=== PATIENT | male | born 1985 | race Caucasian/White ===

== ENCOUNTER 2021-03-19 05:33 | Observation (INO) | payer BC, SELFPAY ==
[2021-03-19] VITALS (13 sets, daily range): BP systolic 148–188; BP diastolic 89–109; PULSE 87–119; RESP 14–19; TEMP 36.4–36.8; O2SAT 97–100; BMI 38.4
--- NOTE | ~2021-03-19 | XR_ITS ---
EXAMINATION: XR chest 1V portable DATE: 03/19/2021 05:49 INDICATION: Chest pain TECHNIQUE: frontal view of the chest was obtained. COMPARISON: None FINDINGS: The lungs are clear with no focal airspace opacities, pulmonary edema, pleural effusion or pneumothor ax. The cardiomediastinal silhouette is normal. Visualized bones and soft tissues are unremarkable. IMPRESSION: 1. No acute cardiopulmonary disease. Reviewed, dictated and finalized at location A. HEALTH SCHEDULER
--- NOTE | ~2021-03-19 | CT_ITS ---
EXAMINATION: CTA chest PE protocol DATE: 03/19/2021 14:48 INDICATION: Chest pain. Recent Covid 19 diagnosis TECHNIQUE: Computed tomography angiography (CTA) of the chest was performed with 100 mL Omnipaque-350 intravenous contrast timed to evaluate the pulmonary arteries. Coronal maximum intensity projection 3D-reconstructions were created by the technologist. Automated exposure control and iterative reconst ruction technique were employed. Exam dose: 886.39 mGy-cm total exam DLP. COMPARISON: None. FINDINGS: There is diagnostic contrast enhancement of the pulmonary arteries and no evidence of pulmo nary embolism. No thoracic aortic aneurysm or dissection. Normal heart size. No pericardial or pleural effusion. No pulmonary infiltrate or consolidation or pulmonary mass density. Small sliding hiatal hernia. There is hepatic steatosis with minimal sparing around the gallbladder. There is a nonspecific approximately 2.5 cm rounded area of hypoenhancement in the anterolateral mid right kidney; different diagnosis includes focal pyelonephritis or infarct, hypernephroma. No suspicious osteolytic or osteoblastic lesions are noted. IMPRESSION: No evidence of pulmonary embolism Approximately 2.5 cm hypoenhancing lesion of the right kidney; diffusion diagnosis includes pyeloneph ritis, renal infarct, hypernephroma Reviewed, dictated and finalized at [facility]. Reviewed, dictated and finalized at location A. GE LICENSED PRACTICAL NURSE IMPRESSION: No evidence of pulmonary embolism Approximately 2.5 cm hypoenhancing lesion of the right kidney; diffusion diagno sis includes pyelonephritis, renal infarct, hypernephroma
--- NOTE | 2021-03-19 05:37 | ECG_ITS ---
Measurements Intervals [place] Rate: 109 P: 42 WA: 116 QRS: 13 QRSD: 103 T: 48 QT: 336 QTc: 454 Interpretive Statements SINUS TACHYCARDIA WITH SHORT WA INTERVAL INCOMPLETE RIGHT BUNDLE BRANCH BLOCK BORDERLINE ST ABNORMALITY- ANTEROLATERAL LEADS BORDERLINE ECG Electronically Signed On 03-19-2021 7:08:34 PUMPMAN by Abdi Bowen D.O.
--- NOTE | 2021-03-19 05:59 | ED.CHESTPAIN ---
HPI - Chest Pain General Chief Complaint: Chest Pain Stated Complaint: midsternal cp x 1 week Time Seen by Provider: 03/19/21 05:37 Source: RN notes reviewed History of Present Illness HPI narrative: Patient presents emergency department from home for chest pain. Patient states has been having intermittent midsternal chest pain for the past 1 week. The pain is located midsternal chest described as a pressure in nature. States that the pain causes tingling in his left hand. Pain does get worse with activity states the pain will last from 10 to 20 minutes and resolve he denies any shortness of breath with the pain he denies any fevers or chills abdominal pain nausea vomiting or any other symptoms. States the pain is resolved at this time Related Data Home Medications Medication Instructions Recorded Confirmed No Home Medications 03/19/21 03/19/21 Allergies Allergy/AdvReac Type Severity Reaction Status Date / Time No Known Allergies Allergy Verified 03/19/21 05:48 Review of Systems Review of Systems: Gen.: Denies fevers or chills ENT: Denies congestion Respiratory: Denies shortness of breath or cough CV: See HPI GI: Denies abdominal pain nausea, emesis or diarrhea Musculoskeletal: Denies back pain or muscle pain Neuro: Denies numbness, tingling, weakness or focal weakness Skin: Denies rash Except as documented, all other systems reviewed and negative [facility] Past Medical History Medical History (Updated 03/19/21 @ 06:57 by Tom Talavera DO) Hypertension Social History Social History (Updated 03/19/21 @ 06:08 by Tom Talavera DO) Smoking status: Current every day smoker Exam Narrative: APPEARANCE: No acute distress, nontoxic, resting in bed EYES: EOMI HEENT: Normocephalic, atraumatic, OMM RESPIRATORY: No respiratory distress Clear to auscultation bilaterally with no rhonchi wheezing or rales. CARDIOVASCULAR: Regular rate and rhythm without murmurs rubs or gallops. ABDOMINAL: Soft, nontender, nondistended, no rebound or guarding MUSCULOSKELETAl: Moves all extremities. No clubbing, cyanosis or edema. NEURO: Awake and alert. Following commands, speech normal, no focal deficits SKIN:: Warm, dry. No rashes lesions or abrasions PSYCHIATRIC: Normal affect/mood, Course Course Emergency Course: Discussed with Dr. Tran presentation work-up agrees with consult recommends admission the hospital service Discussed with Dr. Rivera presentation work-up agrees with admission at this time Discussed with patient and family results of workup and diagnosis. Discussed need for admission. Patient and family understand and agree to current treatment plan Vital Signs Vital signs: Vital Signs Temperature 97.6 F 03/19/21 05:37 Pulse Rate 116 H 03/19/21 05:37 Respiratory Rate 17 03/19/21 05:37 Blood Pressure 188/109 H 03/19/21 05:37 Pulse Oximetry 99 03/19/21 05:37 Temperature 97.6 F 03/19/21 05:37 Pulse Rate 94 03/19/21 06:33 Respiratory Rate 16 03/19/21 06:33 Blood Pressure 148/93 H 03/19/21 06:33 Pulse Oximetry 97 03/19/21 06:33 MDM - Chest Pain Lab Data Result diagrams: 03/19/21 05:56 03/19/21 05:56 Labs: Lab Results 03/19/21 03/19/21 03/19/21 Range/Units 05:56 05:56 05:56 WBC 14.3 H (4.5-10.0) K/mm3 RBC 5.23 (4.6-6.20) M/mm3 Hgb 16.8 (14.0-18.0) g/dL Hct 48.3 (42.0-52.0) % MCV 92.4 (80-100) fl MCH 32.1 (26-34) pg MCHC 34.8 (32-36) g/dl RDW 13.7 (11.5-14.5) % Plt Count 356 (150-375) k/mm3 MPV 8.7 (7.4-10.4) fl Immature Gran % (Auto) 0.5 (0-0.5) % Neut % (Auto) 52.5 (45.5-73.1) % Lymph % (Auto) 38.6 (18.3-44.2) % [place] % (Auto) 7.2 (2.6-8.5) % Eos % (Auto) 0.8 (0-4.4) % Baso % (Auto) 0.4 (0.2-1.2) % Lymph # (Auto) 5.50 H (0.9-3.2) K/mm3 [place] # (Auto) 1.0 H (0.1-0.6) K/mm3 Eos # (Auto) 0.1 (0-0.3) K/mm3 Baso # (Auto) 0.1 (0.0-
[2021-03-19 06:04] LABS: Basophils Absolute Auto 0.1 K/mm3 (0.0-0.1); Basophils Percent Auto 0.4 % (0.2-1.2); Eosinophils Absolute Auto 0.1 K/mm3 (0-0.3); Eosinophils Percent Auto 0.8 % (0-4.4); Hematocrit 48.3 % (42.0-52.0); Hemoglobin 16.8 g/dL (14.0-18.0); Immature Granulocyte Absolute 0.07 K/mm3 (0.00-0.031); Immature Granulocyte Percent A 0.5 % (0-0.5); Lymphocytes Percent Auto 38.6 % (18.3-44.2); Mean Corpuscular HGB Conc 34.8 g/dl (32-36); Mean Corpuscular Hemoglobin 32.1 pg (26-34); Mean Corpuscular Volume 92.4 fl (80-100); Mean Platelet Volume 8.7 fl (7.4-10.4); Monocytes Percent Auto 7.2 % (2.6-8.5); Neutrophils Absolute Auto 7.5 K/mm3 (1.3-6.7); Neutrophils Percent Auto 52.5 % (45.5-73.1); Platelet Count Result 356 k/mm3 (150-375); Red Blood Count 5.23 M/mm3 (4.6-6.20); Red Cell Distribution Width 13.7 % (11.5-14.5); White Blood Count 14.3 K/mm3 (4.5-10.0)
[2021-03-19] MEDS: SODIUM CHLORIDE 0.9% IV 1,000 ML 999 ML IV CONT (06:11)
[2021-03-19 06:17] LABS: Alanine Aminotransferase 75 U/L (4-50); Albumin Level 4.6 g/dL (3.5-5.1); Alkaline Phosphatase 93 U/L (38-126); Anion Gap 15 mmol/L (8-16); Aspartate Amino Transferase 48 U/L (17-59); Bilirubin,Total 0.4 mg/dL (0.2-1.3); Blood Urea Nitrogen 10 mg/dL (9-20); Calcium 10.1 mg/dL (8.4-10.2); Carbon Dioxide 27 mmol/L (22-30); Chloride 101 mmol/L (98-107); Estimated Glomerular Filt Rate > 60; Glucose 148 mg/dL (65-110); Lipase 259 U/L (23-300); Potassium 3.8 mmol/L (3.4-5.0); Sodium 143 mmol/L (137-145)
[2021-03-19 06:19] LABS: INR 0.9; Prothrombin Time 12.4 Seconds (11.1-14.7)
[2021-03-19 06:20] LABS: Partial Thromboplastin Time 29.6 SECONDS (22.3-36.8)
[2021-03-19 06:27] LABS: Troponin I 0.017 ng/mL (0.000-0.034)
[2021-03-19] MEDS: ASPIRIN 81 MG CHEWABLE TABLET 324 MG PO (06:40)
--- NOTE | 2021-03-19 06:40 | PC.NURSE ---
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
[2021-03-19 06:54] LABS: D Dimer 0.27 ug/mL (<0.48)
[2021-03-19 08:34] LABS: Troponin I 0.034 ng/mL (0.000-0.034)
[2021-03-19 11:52] LABS: Troponin I 0.124 ng/mL (0.000-0.034)
--- NOTE | 2021-03-19 13:35 | PM.IMHP ---
H&P: HPI History of Present Illness Date/Time: 03/19/21 13:35Thitrevor is a 35-year-old male patient who has a history of hypertension and has been noncompliant with his hypertensive medication. The patient stated that he has had intermittent chest pain on and off for the past week. The patient stated that his chest pain typically occurs with activity and usually last 10-15 minutes. 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 The chest pain has been midsternal and he states that he does get some left elbow pain and numbness and tingling to his left pinky finger when this occurs. The patient stated that today it has been the worst. He has had some pressure to his chest. No fever chills. No nausea Or vomiting. The patient stated that his pain did radiate between his shoulder blades today. the patient stated that he has been taking Excedrin at home. patient stated his pain was relieved in the emergency room however when I assessed him he stated that he still having some mild discomfort midsternally. The patient stated that he was at rest today when his discomfort started. The 1st 2 troponins were negative and the 3rd troponin was slightly reactive at 0.124. The patient stated that he has blood pressure medicine prescribed to him but he just has not been taking it. EKG was read as sinus tachycardia with short IA interval. Incomplete right bundle branch block. Borderline ST abnormality. Cardiology has been consulted. The patient was started on IV fluids and an aspirin. His white count is 14.3 which may be reactive. Glucose was noted to be 148. The patient stated that he just got off of isolation for COVID-19. The patient stated that he had COVID 2 weeks ago. Chest x-ray was read as no acute cardiopulmonary disease. blood pressures have been 180/109 to 165/101. I did order some hydralazine for the patient. Patient is being admitted to observation status on the date of service of 03/19/2021 Chief Complaint: Chest pain Review of Systems Review of Systems: All systems reviewed & are unremarkable except as noted in HPI and below Constitutional: Constitutional: Reports as per HPI and Reports no additional constitutional complaints Eyes: Eyes: Reports as per HPI and Reports no additional eye complaints ENT: Reports system reviewed and no additional complaints, except as documented and Reports Normal hearing present Cardiovascular: Cardiovascular: Reports no additional cardiovascular complaints Respiratory: Respiratory: Reports no additional respiratory complaints and Reports no additional respiratory complaints Gastrointestinal: Gastrointestinal: Reports as per HPI and Reports no additional gastrointestinal complaints Musculoskeletal: Musculoskeletal: Reports no additional musculoskeletal complaints Integumentary/Breasts: Skin/Breast: Reports system reviewed and no additional complaints, except as docu and Reports as per HPI Neurologic: Reports system reviewed and no additional complaints, except as documented, Reports as per HPI and Reports Normal hearing present Psychiatric: Psychiatric: Reports no additional psychiatric complaints and Reports as per HPI Endocrine: Endocrine: Reports no additional endocrine complaints Hematologic/Lymphatic: Hematologic/Lymphatic: Reports no additional hematologic/lymphatic complaints Allergic/Immunologic: Allergic/Immunologic: Reports no additional allergic/immunologic complaints PMFSH Past Medical History Medical History (Updated 03/19/21 @ 13:49 by Lindsay Johnson NP) COVID-19 2 weeks ago is off isolation Hypertension Non compliant with treatment Surgical History Surgical History (Updated 03/19/21 @ 13:43 by Lindsay Johnson NP) H/O oral surgery Family History Family History (Updated 03/19/21 @ 13:44 by Lindsay Johnson NP) Father Healthy adult Social History Social History (Updated 03/19/21 @ 13:45 by Lindsay Peters
[2021-03-19] MEDS: hydrALAZINE HCL 20 MG/ML VIAL 10 MG IV PUSH (15:12)
[2021-03-19 15:54] LABS: Troponin I 0.366 ng/mL (0.000-0.034)
--- NOTE | 2021-03-19 16:41 | PC.NURSE ---
Notified Lindsay Johnson of patient's high blood pressure. Verbal order to administer pt 2100 dose of metoprolol.
[2021-03-19] MEDS: METOPROLOL TARTRATE 12.5 MG TABLET PO (16:49)
--- NOTE | 2021-03-19 18:34 | ADMGEN ---
This patient, Seth Caldwell, was admitted to Intensive Care Unit-9. Patient/family oriented to hospital policies and general routines including ID bracelet, bed and alarms, visiting hours, pain management, procedures, bathroom and other care routines, personal items, smoking policy, room service/diet, and visiting hours. Information on how to activate the Rapid Response Team has been discussed. Patient/Family are encouraged to report perceived risks to care and to ask questions if they do not understand what they are told or what they should do.
[2021-03-20] VITALS (14 sets, daily range): BP systolic 141–167; BP diastolic 89–105; PULSE 87–122; RESP 14–22; TEMP 36.7–37.4; O2SAT 96–99
--- NOTE | 2021-03-20 | ECHO_ITS ---
Patient Info Name: Seth Caldwell Age: 35 years : 1985 Gender: Male Ht: 68 in Wt: 250 lbs BSA: 2.38 m2 HR: 87 bpm BP: 152 / 98 mmHg Heart Rhythm: Sinus Rhythm Exam Date: 03/20/2021 10:58 AM Exam Location: [facility] Patient Status: Inpatient Admit Date: 03/19/2021 Staff Ordering Physician: Lindsay Johnson NP Heel Seat Flap Stapler: Case Hernandez RDCS, RT Attending Provider: Rula Rivera MD Referring Physician: Alex RICHEY; Exam Type: CA echo dop color flow w con Study Info Indications R07.9 - Chest pain, unspecified Complete two-dimensional, color flow and Doppler transthoracic echocardiogram is performed with contrast to opacify the left ventricle and to improve the deliniation of the left ventricle endocardial borders. Strain analysis performed. Summary 1. Mild left ventricular hypertrophy with normal systolic function. 2. No ischemic wall motion abnormalities were identified. 3. No valvular pathology was identified. 4. Incidentally noted left ventricular false cord. Left Ventricle Left ventricular chamber dimension is normal. Left ventricular systolic function is normal, estimated at 50-55%. There is mild concentric increased left ventricular wall thickness. The left ventricular diastolic function is normal. Right Ventricle Right ventricular chamber dimension is normal. Left Atria Left atrial chamber dimension is normal. Right Atria Right atrial chamber dimension is normal. Aortic Valve The aortic valve is normal. Pulmonic Valve The pulmonic valve is not well visualized. Mitral Valve The mitral valve has normal leaflets. Tricuspid Valve The tricuspid valve leaflets are normal. Pericardium/Pleural The pericardium appears normal. Aorta The aortic root size at the sinus of Valsalva is normal. Left Ventricular Outflow Tract Name Value Normal LVOT 2D LVOT Diameter 2.05 cm LVOT Doppler LVOT Peak Gradient 3 mmHg LVOT Mean Gradient 2 mmHg LVOT VTI 16.46 cm LVOT VTI/AV VTI Ratio 0.68 LVOT Stroke Volume 54.24 ml LVOT CO 4.99 l/min LVOT CI 2.09 L/min/m2 Mitral Valve Name Value Normal MV Doppler MV Decel [place] 408.22 cm/s2 MV PHT 0 s MV Area (PHT) 4.14 cm2 4.00-5.00 MV Diastolic Function MV E Peak Velocity 74.80 cm/s MV A Peak Velocity 56.66 cm/s MV E/A 1.32 MV Decel Time 0 s MV Annular TDI
[2021-03-20 04:54] LABS: Basophils Absolute Auto 0.1 K/mm3 (0.0-0.1); Basophils Percent Auto 0.4 % (0.2-1.2); Eosinophils Absolute Auto 0.2 K/mm3 (0-0.3); Eosinophils Percent Auto 1.2 % (0-4.4); Hematocrit 47.2 % (42.0-52.0); Hemoglobin 16.4 g/dL (14.0-18.0); Immature Granulocyte Absolute 0.06 K/mm3 (0.00-0.031); Immature Granulocyte Percent A 0.5 % (0-0.5); Lymphocytes Absolute Auto 3.64 K/mm3 (0.9-3.2); Lymphocytes Percent Auto 29.6 % (18.3-44.2); Mean Corpuscular HGB Conc 34.7 g/dl (32-36); Mean Platelet Volume 8.8 fl (7.4-10.4); Monocytes Absolute Auto 1.1 K/mm3 (0.1-0.6); Monocytes Percent Auto 9.3 % (2.6-8.5); Neutrophils Absolute Auto 7.3 K/mm3 (1.3-6.7); Platelet Count Result 329 k/mm3 (150-375); Red Blood Count 5.13 M/mm3 (4.6-6.20); Red Cell Distribution Width 13.8 % (11.5-14.5); White Blood Count 12.3 K/mm3 (4.5-10.0)
[2021-03-20 05:04] LABS: Lactic Acid Reflex 0.8 mmol/L (0.7-2.1)
[2021-03-20 05:05] LABS: Anion Gap 8 mmol/L (8-16); Blood Urea Nitrogen 12 mg/dL (9-20); Calcium 9.2 mg/dL (8.4-10.2); Carbon Dioxide 26 mmol/L (22-30); Chloride 105 mmol/L (98-107); Cholesterol 184 mg/dL (0-200); Estimated CRCL calculation 138 ml/min; Estimated Glomerular Filt Rate > 60; Glucose 111 mg/dL (65-110); HDL Direct 34 mg/dL; Lipase 256 U/L (23-300); Magnesium 2.2 mg/dL (1.6-2.3); Potassium 3.7 mmol/L (3.4-5.0); Sodium 139 mmol/L (137-145); Triglycerides 122 mg/dL (<150)
[2021-03-20 05:16] LABS: LDL Cholesterol Direct 132 mg/dL
[2021-03-20 05:20] LABS: Troponin I 0.966 ng/mL (0.000-0.034)
--- NOTE | 2021-03-20 07:07 | PC.NURSE ---
This patient, Seth Caldwell, was received from ICU on 03/20/21 at 0630. Patient/family oriented to unit policies and routines. All questions ansered at this time.
[2021-03-20] MEDS: METOPROLOL TARTRATE 12.5 MG TABLET PO (09:14)
[2021-03-20] MEDS: ENOXAPARIN 40 MG/0.4 ML SYRINGE SUB-Q (09:14)
[2021-03-20] MEDS: ASPIRIN 81 MG ENTERIC TABLET PO (09:15)
[2021-03-20] MEDS: PERFLUTREN LIPID MICROSPHERES 1.5 ML VIAL DILUTED TO 10 ML TOTAL VOLUME IV PUSH (11:40)
[2021-03-20] MEDS: lisinopriL 20 MG TABLET PO (11:45)
[2021-03-20] MEDS: amLODIPine BESYLATE 5 MG TABLET 10 MG BY MOUTH (11:45)
[2021-03-20 12:28] LABS: Lactate Dehydrogenase 471 U/L (313-618)
--- NOTE | 2021-03-20 13:09 | PM.CNCAR ---
Assessment and Plan Additional Plan 35-year-old man with significant hypertension requiring a multi-drug regimen for treatment. In this setting with no medication his blood pressure was extremely high and he was having some symptoms of chest pain. Normally he does not experience any symptoms that are suspicious for coronary artery disease. His blood pressure while still elevated is improved enough for I believe he could be discharged. I believe I would recommend a Lexiscan nuclear stress test to rule out significant ischemic heart disease. With his pressure being elevated I would rather not have him run on the treadmill. That of course could be done as an inpatient tomorrow morning but certainly I believe he is stable enough at at relatively young age with this can be done safely in my office as an outpatient. I will assume unless I hear otherwise that he is being discharged for these reasons and I will arrange for this examination to be done in my office after which I will see him in follow-up and review the findings. Thank you for asking me to see him in consultation. Darwin Godwin MD [facility] History of Present Illness History of Present Illness Consult date/time: 03/20/21 13:09 Consult reason: chest pain Reason For Visit: Chest Pain Narrative: This is a 35-year-old man I am seeing at the request of the hospitalist because of some chest pain and elevation in his troponin level. The patient has no prior history of any cardiac problems that he is aware of. He does have a longstanding history of hypertension for which he is on a multi-drug regimen and follows with a local PCP who is not on staff at [place]. The patient states that about a month ago he no longer has been taking his medication because he thought he would be unavailable to him because of lack of insurance. He later indicated that he realizes insurance was still in force but the point is he did not take any of his hypertension medicine for a while. For about the last week to 10 days he has been having episodes of chest pain which tend to occur during waking hours when he is busy at work. The discomfort would typically be transient lasting 3-5 minutes at a time and then resolve with relaxing. Yesterday he had a more prolonged episode and he decided to come to the emergency department in the ED he was markedly hypertensive he was evaluated otherwise felt to be stable. Troponin levels were checked and they are modestly elevated and in this setting he is being admitted for further treatment. He has been placed back on a blood pressure regimen at this time consisting of metoprolol lisinopril and amlodipine. He is still hypertensive today with systolic pressures between 150-160 and diastolic pressures between 90-105. He is however asymptomatic and feels well at this time. In this setting I am seeing him in consultation. He does have a history of smoking as another major coronary risk factor he says he is not known to have dyslipidemia to the best of his knowledge and there is no family history of premature ischemic heart disease. Review of Systems Constitutional: Constitutional: Reports no additional constitutional complaints Eyes: Eyes: Reports no additional eye complaints ENT: Reports system reviewed and no additional complaints, except as documented Cardiovascular: Cardiovascular: Reports as per HPI Respiratory: Respiratory: Reports no additional respiratory complaints Gastrointestinal: Gastrointestinal: Reports no additional gastrointestinal complaints Musculoskeletal: Musculoskeletal: Reports no additional musculoskeletal complaints Integumentary/Breasts: Skin/Breast: Reports system reviewed and no additional complaints, except as docu Neurologic: Reports system reviewed and no additional complaints, except as documented Endocrine: Endocrine: Reports no additional endocrine complaints Hematologic/Lymphatic: Hematologic/Lymphatic: Reports no additional hematologic/ly
[2021-03-20 14:29] LABS: Alanine Aminotransferase 54 U/L (4-50); Albumin Level 4.2 g/dL (3.5-5.1); Alkaline Phosphatase 93 U/L (38-126); Aspartate Amino Transferase 36 U/L (17-59); Bilirubin,Total 0.6 mg/dL (0.2-1.3)
[2021-03-20 17:00] LABS: Add Urine Microscopic? YES; Appearance Urine Clear (Clear); Bilirubin Urine Negative (Negative); Blood Urine Negative (Negative); Color Urine Yellow (Yellow); Glucose Urine UA Negative (Negative); Ketones Urine 1+ mg/dL (Negative); Leukocyte Esterase Ur Negative LEU/UL (Negative); Mucus Urine Rare /lpf; Nitrate Urine Negative (Negative); Protein Urine 1+ mg/dL (Negative); RBC Urine 0-2 /hpf (0-2); Specific Grav Ur 1.024 (1.001-1.035); Squamous Epithelial Cell Urine Rare /hpf (Few); WBC Urine 0-3 /hpf
--- NOTE | 2021-03-20 17:37 | PM.DS ---
DS: Admitting Diagnosis Discharge Date 03/20/21 Admitting Diagnosis Chest pain DS: Discharge Diagnosis Discharge Diagnosis (1) Chest pain: Code(s): R07.9 - Chest pain, unspecified Status: Acute (2) Hypertension: Code(s): I10 - Essential (primary) hypertension Status: Chronic (3) Renal mass: Code(s): N28.89 - Other specified disorders of kidney and ureter Status: Acute (4) Sinus tachycardia: Code(s): R00.0 - Tachycardia, unspecified Status: Acute (5) Elevated troponin: Code(s): R77.8 - Other specified abnormalities of plasma proteins Status: Acute (6) Elevated ALT measurement: Code(s): R74.01 - Elevation of levels of liver transaminase levels Status: Acute (7) Hyperglycemia: Code(s): R73.9 - Hyperglycemia, unspecified Status: Acute (8) Leukocytosis: Code(s): D72.829 - Elevated white blood cell count, unspecified Status: Acute (9) Tobacco abuse: Code(s): Z72.0 - Tobacco use Status: Acute (10) Hepatic steatosis: Code(s): K76.0 - Fatty (change of) liver, not elsewhere classified Status: Acute DS: Summary Hospital Course Reason for hospitalization: 35yo male with HTN and recently diagnosed with COVID here for chest pain. Please see H&P for details. Hospital Course: Patient presents to emergency room with complaints of chest pain. His blood pressure was 188/109 and pulse 116. Chest x-ray was clear. EKG shows sinus tachycardia with short LA interval and incomplete right bundle branch block. He had a borderline ST changes in the anterior and lateral leads. White count was slightly elevated at 14,000 thousand and on repeat, it trended downward. He had a normal differential. He was not given antibiotics. D-dimer was normal. Glucose was 148. Hemoglobin A1c is pending. LFTs were normal except for an ALT of 75. On repeat this also was trending downward. His troponin trended upward to 0.966. Triglycerides were normal at 122. Total cholesterol is 184 with an LDL 132 and HDL 34. Lipase was normal. TSH was normal. CTA of the chest showed no evidence of pulmonary emboli but did show hepatic steatosis which could explain the mildly elevated ALT. There is also a 2.5 cm lesion in the right kidney. Urinalysis was not consistent with infectious process. Consider renal infarct or renal cell carcinoma. Discussed with radiology who felt that an ultrasound would be warranted. If the ultrasound does show fluid filled cyst then more likely to be a hemorrhagic cyst. Patient was educated about the benefits of smoking cessation. Echocardiogram showed EF of 50-55% with mild left ventricular hypertrophy. Patient has been without his medications for awhile which explains his markedly elevated blood pressure. We did resumed his home antihypertensive medications and added metoprolol. He does have sinus tachycardia on occasion but states he has had this since mary COVID a few weeks ago. BP became better controlled. Cardiology felt the patient could go home with close follow-up and an outpatient Lexiscan stress test. Patient has remained chest pain free today. He feels well. He is eager for discharge. He voiced understanding about the need to have follow-up with english and reading instructor for the stress test as well as the importance of having the renal ultrasound. Patient overall did well and was able to be discharged home on 03/20/2021. Status at Discharge Cognitive/behavioral status at discharge: stable Time Spent with Patient Time attestation: Total time spent providing and/or coordinating discharge services: 35 minutes Time spent: Greater than 30 minutes Exam Narrative: AF 99.3 144/94 95 20 97% ra Gen - NARD Chest - CTA bilaterally, nml RR CV - RRR S1/S2; Tele showing ocasional sinus tachycardia Abd - Soft, NT/ND, Positive BS Ext - No pedal edema Neuro - Alert and oriented. Nonfocal exam. Psy
[2021-03-21 13:56] LABS: Hemoglobin A1C 5.7 % (<5.7)
--- NOTE | 2021-03-22 10:05 | PC.NURSE ---
A1C is 5.7. Dr. Mojica aware.
--- NOTE | 2021-03-24 16:40 | ED.CHESTPAIN ---
HPI - Chest Pain General Chief Complaint: Chest Pain Stated Complaint: midsternal cp x 1 week Time Seen by Provider: 03/19/21 05:37 Source: RN notes reviewed History of Present Illness HPI narrative: Patient presents emergency department from home for chest pain. Patient states he been having intermittent midsternal chest pain that radiates in the left hand for the past 1 week. He states the pain is worse with activity and improves with rest the pain is described as a pressure in nature. States that the pain worsened this evening notes mild shortness of breath with the symptoms he denies any fevers or chills abdominal pain nausea vomiting. States he does have a history of hypertension but stopped taking his hypertensive medications this past spring denies any previous cardiac history Related Data Home Medications Medication Instructions Recorded Confirmed amlodipine-benazepril 1 cap PO DAILY 03/19/21 03/19/21 Allergies Allergy/AdvReac Type Severity Reaction Status Date / Time No Known Allergies Allergy Verified 03/19/21 05:48 Review of Systems Review of Systems: Gen.: Denies fevers or chills ENT: Denies congestion Respiratory: Denies shortness of breath CV: See HPI GI: Denies abdominal pain nausea, emesis or diarrhea Musculoskeletal: Denies back pain or muscle pain Neuro: Denies numbness, tingling, weakness or focal weakness Skin: Denies rash Except as documented, all other systems reviewed and negative PMFSH Past Medical History Medical History COVID-19 2 weeks ago is off isolation Hypertension Non compliant with treatment Surgical History Surgical History (Updated 03/19/21 @ 13:43 by Lindsay Johnson NP) H/O oral surgery Family History Family History (Updated 03/19/21 @ 18:40 by Anastasia Gonzalez RN) Father Healthy adult Grandparent Pancreatic adenocarcinoma Grandparent Breast cancer Social History Social History Social History: 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 The patient continues to smoke about half pack a cigarettes a day. He drinks alcohol approximately once a week. He stated that yesterday he had approximately 13 beers. The patient is and his is the durable power employee benefits attorney for healthcare. He has 1 child and another child on the way. Code status full code Smoking packs per day: 0.5 Smoking cigarettes per day: 10.0 Years smoked: 20 Smoking pack-years: 10.00 Smoking status: Current every day smoker Tobacco type: cigarettes Alcohol intake: current Drinks per week: 10 Substance use: never Spiritual care concerns: No Exam Narrative: APPEARANCE: No acute distress, nontoxic, resting in bed EYES: EOMI HEENT: Normocephalic, atraumatic, OMM RESPIRATORY: No respiratory distress Clear to auscultation bilaterally with no rhonchi wheezing or rales. CARDIOVASCULAR: Regular rate and rhythm without murmurs rubs or gallops. ABDOMINAL: Soft, nontender, nondistended, no rebound or guarding MUSCULOSKELETAl: Moves all extremities. No clubbing, cyanosis or edema. NEURO: Awake and alert. Following commands, speech normal, no focal deficits SKIN:: Warm, dry. No rashes lesions or abrasions PSYCHIATRIC: Normal affect/mood, Course Course Emergency Course: Discussed with Dr. Tran presentation work-up was admission the hospital service at this time and will consult Dr. Rivera presentation work-up agrees with admission at this time Discussed with patient and family results of workup and diagnosis. Discussed need for admission. Patient and family understand and agree to current treatment plan Vital Signs Vital signs: Vital Signs Temperature 97.6 F 03/19/21 05:37 Pulse Rate 116 H 03/19/21 05:37 Respiratory Rate 17 03/19/21 05:37 Blood Pressure 188/109 H 03/19/21 05:37 Pulse Oximetry 99 03/19/21 05:37 Te
== END 2021-03-20 18:31 | disposition home or self-care (01) ==
LOC: ANHED 08:39 → ANHICU 23:06 → ANHIMU 03-20 13:09 → ANHICU 03-21 10:51 → ANHIMU 03-21 10:51
PROVIDERS: Nurse Practitioner; Admitting Provider Hospitalist; Emergency Provider Emergency Medicine; PCP Family Medicine; Visit Provider Internal Medicine
DX: R07.9 Chest pain, unspecified (principal); R77.8 Other specified abnormalities of plasma proteins; R74.01 Elevation of levels of liver transaminase levels; R00.0 Tachycardia, unspecified; R73.9 Hyperglycemia, unspecified; Z91.14 Patient's other noncompliance with medication regimen; D72.829 Elevated white blood cell count, unspecified; N28.9 Disorder of kidney and ureter, unspecified; F17.210 Nicotine dependence, cigarettes, uncomplicated; I10 Essential (primary) hypertension; K76.0 Fatty (change of) liver, not elsewhere classified
CPT/HCPCS: 36415; 71045; 71275; 80053; 80061; 81001; 83036; 83605; 83615; 83690; 83735; 84443; 84484; 85025; 85380; 85610; 85730; 93005; 96361; 96372; 96374; 96375; 99285; A9270; C8929; G0378; J0360; J1650; J7030; Q9957; Q9967

== ENCOUNTER 2021-03-25 05:00 | Inpatient (IN) | payer BC, SELFPAY ==
[2021-03-25] VITALS (23 sets, daily range): BP systolic 115–212; BP diastolic 95–135; PULSE 85–126; RESP 14–24; TEMP 36.6–37.1; O2SAT 96–100; BMI 37.8
--- NOTE | ~2021-03-25 | XR_ITS ---
EXAMINATION: XR chest 2V DATE: 03/25/2021 05:44 INDICATION: Chest pain. TECHNIQUE: Frontal and lateral views of the chest were obtained. COMPARISON: Chest single view 03/19/2021, chest CT 03/19/2021 FINDINGS: The chest demonstrates clear lungs without pneumonia, pleural effusion, or pneumothorax. Th e heart size is normal. IMPRESSION: 1. No acute cardiopulmonary disease. Reviewed, dictated and finalized at location A. OF LADING CLERK
--- NOTE | ~2021-03-25 | US_ITS ---
EXAMINATION: US renal BI DATE: 03/26/2021 10:14 INDICATION: Right kidney mass. TECHNIQUE: Multiple ultrasound grayscale images of the kidneys were obtained. COMPARISON: Chest CT 03/19/2021 FINDINGS: The right kidney measures 11.4 x 5.9 x 6.9 cm. The left kidney measures 11.1 x 5.8 x 5.8 cm. The kidn eys demonstrate normal parenchymal echogenicity. There is a 1.9 cm cyst in right kidney. There is no hydronephrosis. The bladder is normal. IMPRESSION: 1. 1.9 cm benign cyst in right kidney. Reviewed, dictated and finalized at location A. INE CARTON MARKER
--- NOTE | 2021-03-25 05:14 | ECG_ITS ---
Measurements Intervals [place] Rate: 115 P: [place]: 0 QRS: 23 QRSD: 97 T: 43 QT: 320 QTc: 443 Interpretive Statements SINUS TACHYCARDIA INCOMPLETE RIGHT BUNDLE BRANCH BLOCK ABNORMAL ECG Electronically Signed On 03-25-2021 7:02:26 DIRECTOR [employer]TE[employer] by Abdi Bowen D.O.
[2021-03-25 05:33] LABS: Basophils Absolute Auto 0.1 K/mm3 (0.0-0.1); Basophils Percent Auto 0.3 % (0.2-1.2); Eosinophils Absolute Auto 0.1 K/mm3 (0-0.3); Eosinophils Percent Auto 0.7 % (0-4.4); Hematocrit 45.4 % (42.0-52.0); Hemoglobin 16.1 g/dL (14.0-18.0); Immature Granulocyte Absolute 0.06 K/mm3 (0.00-0.031); Immature Granulocyte Percent A 0.4 % (0-0.5); Lymphocytes Absolute Auto 5.26 K/mm3 (0.9-3.2); Lymphocytes Percent Auto 33.8 % (18.3-44.2); Mean Corpuscular HGB Conc 35.5 g/dl (32-36); Mean Corpuscular Hemoglobin 32.8 pg (26-34); Mean Corpuscular Volume 92.5 fl (80-100); Mean Platelet Volume 8.9 fl (7.4-10.4); Monocytes Absolute Auto 1.2 K/mm3 (0.1-0.6); Monocytes Percent Auto 7.9 % (2.6-8.5); Neutrophils Absolute Auto 8.8 K/mm3 (1.3-6.7); Neutrophils Percent Auto 56.9 % (45.5-73.1); Platelet Count Result 409 k/mm3 (150-375); Red Blood Count 4.91 M/mm3 (4.6-6.20); Red Cell Distribution Width 13.1 % (11.5-14.5); White Blood Count 15.5 K/mm3 (4.5-10.0)
--- NOTE | 2021-03-25 05:38 | ED.GENADULT ---
HPI - General Adult General Chief complaint: Chest Pain <Jace Farmer MD - Last Filed: 03/25/21 05:40> Stated complaint: Chest pain, high bp, pain between shoulder blades <Jace Farmer MD - Last Filed: 03/25/21 05:40> Time Seen by Provider: 03/25/21 05:18 <Jace Farmer MD - Last Filed: 03/25/21 05:40> History of Present Illness HPI narrative: Patient 35-year-old gentleman presents the emergency department with chief complaint of chest pain and palpitations. The patient reports he was recently admitted to the hospital for observation and is scheduled to follow-up with cardiology for outpatient stress testing. The patient states this evening he felt as though his heart was beating fast and ended up calling EMS. On arrival of the emergency department he has some edema of the left subcutaneous breast tissue and there is been no fever no vomiting no chills or body aches. <Jace Farmer MD - Last Filed: 03/25/21 05:40> Related Data Home medications: Home Medications Medication Instructions Recorded Confirmed amlodipine-benazepril [Lotrel] 1 cap PO DAILY 03/19/21 03/25/21 aspirin [Adult Low Dose Aspirin] 81 mg PO QAM 03/25/21 03/25/21 <Jace Farmer MD - Last Filed: 03/25/21 05:40> Allergies/adverse reactions: Allergies Allergy/AdvReac Type Severity Reaction Status Date / Time No Known Allergies Allergy Verified 03/25/21 05:17 <Jace Farmer MD - Last Filed: 03/25/21 05:40> Review of Systems Review of Systems: CONSTITUTIONAL: Denies fever, chills, or sweats. EYES: Denies visual changes, redness, or discharge. ENT: Denies rhinorrhea, congestion, sore throat, or otalgia. CARDIOVASCULAR: Reports chest pain and palpitations RESPIRATORY: Denies cough or dyspnea. GASTROINTESTINAL: Denies abdominal pain, nausea, vomiting, or diarrhea. GENITOURINARY: Denies dysuria or hematuria. SKIN: Denies rash or itching. MUSCULOSKELETAL: Denies joint pain, or myalgia. NEUROLOGIC: Denies headache, numbness, dizziness, or weakness. PSYCHIATRIC: Denies anxiety or depression. <Azar Mccarthy MD - Last Filed: 03/25/21 12:48> All systems reviewed & are unremarkable except as noted in HPI and below <Azar Mccarthy MD - Last Filed: 03/25/21 12:48> PMFSH Past Medical History Medical History: Medical History COVID-19 2 weeks ago is off isolation Hypertension Non compliant with treatment <Jace Farmer MD - Last Filed: 03/25/21 05:40> Surgical History Surgical History: Surgical History H/O oral surgery <Jace Farmer MD - Last Filed: 03/25/21 05:40> Family History Family History: Family History Father Healthy adult Grandparent Pancreatic adenocarcinoma Grandparent Breast cancer <Jace Farmer MD - Last Filed: 03/25/21 05:40> Social History Social History: Social History 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 He drinks alcohol approximately once a week. He stated that yesterday he had approximately 13 beers. The patient is and his is the durable power estate attorney for healthcare. He has 1 child and another child on the way. Code status full code Smoking packs per day: 0.5 Smoking cigarettes per day: 10.0 Years smoked: 20 Smoking pack-years: 10.00 Smoking status: Never smoker Tobacco type: cigarettes Alcohol intake: current Drinks per week: 6 Substance use: never Substance use type: does not use Spiritual care concerns: No <Jace Farmer MD - Last Filed: 03/25/21 05:40> Exam Narrative: GENERAL: Well-a
[2021-03-25 05:42] LABS: Lipase 252 U/L (23-300)
[2021-03-25 05:44] LABS: INR 0.9; Prothrombin Time 11.7 Seconds (11.1-14.7)
[2021-03-25 05:45] LABS: Partial Thromboplastin Time 30.6 SECONDS (22.3-36.8)
[2021-03-25] MEDS: NITROGLYCERIN SL 0.4 MG TABLET SUBLINGUAL ×2 (05:52→09:27)
[2021-03-25 05:53] LABS: Alanine Aminotransferase 71 U/L (4-50); Albumin Level 4.8 g/dL (3.5-5.1); Alkaline Phosphatase 98 U/L (38-126); Anion Gap 11 mmol/L (8-16); Aspartate Amino Transferase 54 U/L (17-59); Bilirubin,Total 0.3 mg/dL (0.2-1.3); Blood Urea Nitrogen 15 mg/dL (9-20); Calcium 11.6 mg/dL (8.4-10.2); Carbon Dioxide 26 mmol/L (22-30); Chloride 104 mmol/L (98-107); Estimated CRCL calculation 137 ml/min; Estimated Glomerular Filt Rate > 60; Glucose 134 mg/dL (65-110); Sodium 141 mmol/L (137-145)
--- NOTE | 2021-03-25 05:53 | PC.NURSE ---
Aspirin not given. Pt reports he took it at 0100 just prior to arrival.
[2021-03-25 06:23] LABS: Troponin I 0.573 ng/mL (0.000-0.034)
--- NOTE | 2021-03-25 06:32 | PC.NURSE ---
After 1st dose of sl nitro, pt reported worsening chest pain. ED MD notified. pain from 08/20 to 11/19. no further nitro doses administered.
--- NOTE | 2021-03-25 09:18 | ECG_ITS ---
Measurements Intervals [place] Rate: 101 P: 48 CO: 141 QRS: 3 QRSD: 100 T: 37 QT: 334 QTc: 434 Interpretive Statements SINUS TACHYCARDIA INCOMPLETE RIGHT BUNDLE BRANCH BLOCK BORDERLINE ECG Electronically Signed On 03-25-2021 15:12:42 FRONT OFFICE HELP by Abdi Bowen D.O.
--- NOTE | 2021-03-25 09:35 | PC.NURSE ---
2nd dose of nitro given 0935: HR 116, BP 189/118
[2021-03-25] MEDS: SODIUM CHLORIDE 0.9% IV 1,000 ML 125 ML IV CONT ×2 (10:05→18:32)
[2021-03-25] MEDS: HEPARIN SODIUM 5,000 UNITS/ML VIAL 4000 UNITS IV PUSH ×3 (10:05→23:10)
[2021-03-25] MEDS: HEPARIN SOD/D5W 100 UNITS/ML 25,000 UNITS/250 ML BAG 10 UNITS IV CONT (10:06)
[2021-03-25] MEDS: CALCIUM CARBONATE (TUMS) 500 MG (200 MG ELEMENTAL) PO (12:18)
--- NOTE | 2021-03-25 13:10 | PM.IMHP ---
H&P: HPI History of Present Illness Date/Time: 03/25/21 13:10 Chief Complaint: Chest pain. Narrative: This is a 35-year-old male smoker with hypertension and GERD who presented to the emergency department earlier this morning for evaluation of chest pain. He was recently admitted to the hospital overnight on 03/19/2021 after presenting with the same complaint. At that time he did have a modest bump in his troponin and he was evaluated by Dr. Godwin (cardiology) and it was felt that perhaps his troponin bump was related to poorly treated hypertension. Lexiscan nuclear stress test was recommended and he has an upcoming appointment for that sometime next week. He states compliance with his antihypertensives since his recent hospitalization however he has noticed that his blood pressures are still running high at times. He continues to have intermittent midsternal chest heaviness that tends to occur when he is working. It is usually self-limiting, lasting upwards of 5 minutes before resolving with rest. Yesterday and today his discomfort was lasting longer than usual and he came back in for evaluation. He denies associated shortness of breath, nausea, vomiting, and sweats. Review of Systems Review of Systems: Twelve systems were reviewed. No fever, chills, or sweats. No recent cold or flu symptoms. Patient had COVID on 02/23/2021 but had no chest pain at that time. He suffers from GERD and he tends to take Tums 1 to 2 times per day.. His calcium level today was elevated and was noted to be normal with his last visit and he does admit that he has been taking more Tums recently due to increasing GERD symptoms. He does not take a PPI or H2 dottie. He denies headache, nausea, abdominal pain, and bone pain. No history of kidney stones. Weight has remained stable. During his last stay he was found to have an incidental right renal lesion which has yet to be worked up. No history of malignancy. Except as documented, all other systems were reviewed and are negative. [facility] Past Medical History Medical History COVID-19 (02/2021) Hepatic steatosis Hypertension Lesion of right [place] kidney 2.5 cm hypoenhancing lesion of the right kidney noted on CT taken 03/19/2021. Tobacco use Surgical History Surgical History (Updated 03/25/21 @ 13:12 by Tresa Toribio PA-C) History of oral surgery Family History Family History Father Healthy adult Grandparent Pancreatic adenocarcinoma Grandparent Breast cancer Social History Social History (Updated 03/25/21 @ 13:14 by Tresa Toribio PA-C) Social History: Surrogate decision maker: Jaida Caldwell, spouse. Code status: Full code. Smoking packs per day: 0.5 Smoking cigarettes per day: 10.0 Years smoked: 20 Smoking pack-years: 10.00 Smoking status: Never smoker Tobacco type: cigarettes Alcohol intake: current Drinks per week: 6 Substance use: never Substance use type: does not use Additional living arrangements comments: with 1 child [address]. 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 Meds Home Medications and Allergies Home Medications Medication Instructions Recorded Confirmed Type amlodipine-benazepril [Lotrel] 1 cap PO DAILY 03/19/21 03/25/21 History metoprolol tartrate 25 mg PO Q12HR #60 tablet 03/20/21 03/25/21 Rx aspirin [Adult Low Dose Aspirin] 81 mg PO QAM 03/25/21 03/25/21 History Allergies Allergy/AdvReac Type Severity Reaction Status Date / Time No Known Allergies Allergy Verified 03/25/21 05:17 Vital Signs Vital Signs - 24 hr 03/25/21 05:05 03/25/21 05:06 03/25/21 05:07 Temperature 98.1 F Pulse Rate 126 H 121 H 116 H Respiratory Rate 21 H 19 20 Blood Pressure 212/135 H 210/120 H Pulse Oximetry 100 100 98 03/25/21 05:22 03/25/21 06:01 03/25/21 06:07 Temperature Pulse Rate 107 H 103 H 102 H Res
--- NOTE | 2021-03-25 14:11 | PM.CNCAR ---
Assessment and Plan Additional Plan This is a 35-year-old man with significant hypertension. This is his 2nd hospitalization inside of a week with symptoms of chest pain. On the 1st admission we were attributing his troponin elevation to noncompliance with hypertension medication. He reports to be compliant with his medication at this time. He is once again symptomatic with chest pain and his blood pressure is quite high. His troponin rise is more significant as I detailed above. My recommendation will be to continue his regimen. I am going to advanced his beta-dottie give him some intravenous metoprolol at this time and I would arrange for left heart catheterization to be done to define his coronary anatomy because of the more significant troponin rise today. I told the patient that if his condition becomes more unstable in terms of worsening chest pain or ECG changes we can certainly proceed with angiography in a more urgent fashion. Darwin Godwin [facility] History of Present Illness History of Present Illness Consult date/time: 03/25/21 14:11 Consult reason: chest pain Reason For Visit: NSTEMI Narrative: This is a 35-year-old man that I am seeing at the request of the hospitalist he came in the emergency room this morning reporting chest pain and was evaluated and admitted for further evaluation and management. I saw this patient in the hospital 4 days ago and the reader is referred to that note for those details. In short this is a gentleman with longstanding hypertension on a multi-drug regimen who was having some chest pain that appeared to be coincident with being off of his medication and being markedly hypertensive. In that setting his troponin levels were modestly elevated. With reinstitution of his medication his blood pressure improved and he was discharged to home. He felt fairly well for the 1st couple of days but in the last couple of days he has been having burning/pressure likes central chest pain again. He came back to the emergency room with these symptoms early this morning. His electrocardiogram looks completely normal. Troponin levels however are more bothersome with a rise from 0.5-1.7. He has been given aspirin and been anticoagulated with heparin. His normal hypertension regimen has been continued he still has significant hypertension. He is comfortable at this time with IV heparin running. Review of Systems Constitutional: Constitutional: Reports no additional constitutional complaints Eyes: Eyes: Reports no additional eye complaints ENT: Reports system reviewed and no additional complaints, except as documented Cardiovascular: Cardiovascular: Reports as per HPI Respiratory: Respiratory: Reports no additional respiratory complaints Gastrointestinal: Gastrointestinal: Reports no additional gastrointestinal complaints Musculoskeletal: Musculoskeletal: Reports no additional musculoskeletal complaints Integumentary/Breasts: Skin/Breast: Reports system reviewed and no additional complaints, except as docu Neurologic: Reports system reviewed and no additional complaints, except as documented Psychiatric: Psychiatric: Reports no additional psychiatric complaints Endocrine: Endocrine: Reports no additional endocrine complaints Hematologic/Lymphatic: Hematologic/Lymphatic: Reports no additional hematologic/lymphatic complaints Allergic/Immunologic: Allergic/Immunologic: Reports no additional allergic/immunologic complaints [facility] Past Medical History Medical History COVID-19 (02/2021) Hepatic steatosis Hypertension Lesion of right [place] kidney 2.5 cm hypoenhancing lesion of the right kidney noted on CT taken 03/19/2021. Tobacco use Surgical History Surgical History (Updated 03/25/21 @ 13:12 by Tresa Toribio PA-C) History of oral surgery Family History Family History Father Healthy adult Grandparent Pancreatic adenoc
[2021-03-25] MEDS: METOPROLOL TARTRATE INJ 5 MG/5 ML VIAL IV PUSH ×2 (14:32→16:30)
[2021-03-25 16:13] LABS: Partial Thromboplastin Time 38.6 SECONDS (22.3-36.8)
[2021-03-25 16:50] LABS: CRP 1.1 mg/dL (<1.0)
[2021-03-25 17:25] LABS: Erythrocyte Sedimentation Rate 48 mm/hr (0-20)
[2021-03-25 17:39] LABS: Magnesium 2.1 mg/dL (1.6-2.3); Phosphorus 3.8 mg/dL (2.5-4.5)
[2021-03-25 17:43] LABS: Creatinine Urine 23.3 mg/dL
[2021-03-25] MEDS: amLODIPine BESYLATE 5 MG TABLET 10 MG PO (17:47)
[2021-03-25] MEDS: lisinopriL 20 MG TABLET PO (17:47)
[2021-03-25 17:52] LABS: Parathyroid Intact 14.1 pg/mL (7.5-53.5)
[2021-03-25] MEDS: METOPROLOL TARTRATE 50 MG TAB PO (21:40)
[2021-03-25 22:45] LABS: Partial Thromboplastin Time 47.3 SECONDS (22.3-36.8)
[2021-03-26] VITALS (16 sets, daily range): BP systolic 122–144; BP diastolic 81–91; PULSE 81–99; RESP 16–20; TEMP 36.4–37; O2SAT 95–99
[2021-03-26] MEDS: SODIUM CHLORIDE 0.9% IV 1,000 ML 125 ML IV CONT (02:51)
[2021-03-26] MEDS: HEPARIN SOD/D5W 100 UNITS/ML 25,000 UNITS/250 ML BAG 16 UNITS IV CONT (03:58)
[2021-03-26 04:48] LABS: Basophils Absolute Auto 0.1 K/mm3 (0.0-0.1); Basophils Percent Auto 0.4 % (0.2-1.2); Eosinophils Absolute Auto 0.1 K/mm3 (0-0.3); Eosinophils Percent Auto 0.7 % (0-4.4); Hematocrit 44.8 % (42.0-52.0); Hemoglobin 15.9 g/dL (14.0-18.0); Immature Granulocyte Absolute 0.07 K/mm3 (0.00-0.031); Immature Granulocyte Percent A 0.5 % (0-0.5); Lymphocytes Absolute Auto 5.07 K/mm3 (0.9-3.2); Lymphocytes Percent Auto 37.2 % (18.3-44.2); Mean Corpuscular HGB Conc 35.5 g/dl (32-36); Mean Corpuscular Hemoglobin 32.2 pg (26-34); Mean Corpuscular Volume 90.7 fl (80-100); Mean Platelet Volume 8.8 fl (7.4-10.4); Monocytes Absolute Auto 1.2 K/mm3 (0.1-0.6); Neutrophils Absolute Auto 7.1 K/mm3 (1.3-6.7); Neutrophils Percent Auto 52.2 % (45.5-73.1); Platelet Count Result 380 k/mm3 (150-375); Red Blood Count 4.94 M/mm3 (4.6-6.20); White Blood Count 13.6 K/mm3 (4.5-10.0)
[2021-03-26 05:14] LABS: Partial Thromboplastin Time 72.6 SECONDS (22.3-36.8)
[2021-03-26] MEDS: amLODIPine BESYLATE 5 MG TABLET 10 MG PO (10:01)
[2021-03-26] MEDS: ROSUVASTATIN 10 MG TABLET PO (10:02)
[2021-03-26] MEDS: METOPROLOL TARTRATE 50 MG TAB PO ×2 (10:02→20:25)
[2021-03-26] MEDS: ASPIRIN 81 MG ENTERIC TABLET PO (10:02)
[2021-03-26] MEDS: lisinopriL 20 MG TABLET PO (10:02)
--- NOTE | 2021-03-26 10:39 | P.PNCA_ITS ---
Nucleated RBC % ESR APTT 38.6 H Phosphorus 3.8 Magnesium 2.1 Troponin I 1.720 H* D C-Reactive Protein TSH (Reflex) PTH Intact 14.1 Urine Creatinine 03/25/21 03/25/21 03/25/21 15:51 15:51 15:51 WBC RBC Hgb Hct MCV MCH MCHC RDW Plt Count MPV Immature Gran % (Auto) Neut % (Auto) Lymph % (Auto) [place] % (Auto) Eos % (Auto) Baso % (Auto) Lymph # (Auto) [place] # (Auto) Eos # (Auto) Baso # (Auto) Abs Immat Gran (auto) Absolute Neuts (auto) Absolute Nucleated RBC Nucleated RBC % ESR 48 H APTT Phosphorus Magnesium Troponin I C-Reactive Protein 1.1 TSH (Reflex) 1.720 PTH Intact Urine Creatinine 03/25/21 03/25/21 03/26/21 16:40 22:30 04:33 WBC 13.6 H RBC 4.94 Hgb 15.9 Hct 44.8 MCV 90.7 MCH 32.2 MCHC 35.5 RDW 13.0 Plt Count 380 H MPV 8.8 Immature Gran % (Auto) 0.5 Neut % (Auto) 52.2 Lymph % (Auto) 37.2 [place] % (Auto) 9.0 H Eos % (Auto) 0.7 Baso % (Auto) 0.4 Lymph # (Auto) 5.[address] [place] # (Auto) 1.2 H Eos # (Auto) 0.1 Baso # (Auto) 0.1 Abs Immat Gran (auto) 0.07 H Absolute Neuts (auto) 7.1 H Absolute Nucleated RBC 0.0 Nucleated RBC % 0.0 ESR APTT 47.3 H Phosphorus Magnesium Troponin I C-Reactive Protein TSH (Reflex) PTH Intact Urine Creatinine 23.3 03/26/21 04:33 WBC RBC Hgb Hct MCV MCH MCHC RDW Plt Count MPV Immature Gran % (Auto) Neut % (Auto) Lymph % (Auto) [place] % (Auto) Eos % (Auto) Baso % (Auto) Lymph # (Auto) [place] # (Auto) Eos # (Auto) Baso # (Auto) Abs Immat Gran (auto) Absolute Neuts (auto) Absolute Nucleated RBC Nucleated RBC % ESR APTT 72.6 H Phosphorus Magnesium Troponin I C-Reactive Protein TSH (Reflex) PTH Intact Urine Creatinine Quality VTE Prophylaxis VTE prophylaxis: pharmacologic ordered Progress Note: A&P Additional Plan 35-year-old man with significant hypertension. Concern regarding coronary disease because of episodes of chest pain and troponin elevation during this admission. Continue systemic anticoagulation until tomorrow morning and then proceed with angiography. Further recommendations of course will be forthcoming after that is completed Darwin Godwin MD [facility] Subjective Date/time seen: Date of service: 03/26/21 10:39 Interval history: Follow-up visit in this 35-year-old man with significant hypertension and chest pain associated with jacqueline
--- NOTE | 2021-03-26 10:39 | PM.PNCARD ---
Progress Note: A&P Additional Plan 35-year-old man with significant hypertension. Concern regarding coronary disease because of episodes of chest pain and troponin elevation during this admission. Continue systemic anticoagulation until tomorrow morning and then proceed with angiography. Further recommendations of course will be forthcoming after that is completed Darwin Godwin MD [facility] Subjective Date/time seen: Date of service: 03/26/21 10:39 Interval history: Follow-up visit in this 35-year-old man with significant hypertension and chest pain associated with elevated blood pressure. Two recent admissions and on this admission troponin elevation was more significant. Plans therefore are to proceed with coronary angiography tomorrow morning. Today he is comfortable blood pressure is relatively well controlled now and he is asymptomatic. Understands the plans for angiography in the morning and does not have any questions. Exam Const: General: comfortable and no acute distress Other: Overweight gentleman no distress HENMT: Mouth: Yes moist mucous membranes Eyes: Sclera: sclerae normal Pupils: Equal, round and reactive pupils present Neck: Neck: supple and no JVD Resp: Effort & Inspection: normal respiratory effort Auscultation: clear to auscultation bilaterally Cardio: Rate: regular rate Rhythm: regular rhythm Other: PMI difficult to palpate because of his size otherwise unremarkable exam GI: GI Palp: Yes Soft to palpation Auscultation: normal bowel sounds Skin: General skin exam: normal color Neuro: Cognition (Neuro): normal cognition Extrem: General: normal to inspection Objective Data Vital Signs Vital Signs: Vital Signs - 24 hr 03/25/21 11:05 03/25/21 11:11 03/25/21 12:00 Temperature 36.8 C 36.6 C Pulse Rate 106 H 98 92 Respiratory Rate 20 20 24 H Blood Pressure 161/107 H 162/102 H 185/117 H Pulse Oximetry 98 99 98 03/25/21 14:00 03/25/21 14:32 03/25/21 16:00 Temperature 36.9 C Pulse Rate 124 H 98 85 Respiratory Rate 20 Blood Pressure 190/114 H Pulse Oximetry 99 03/25/21 16:30 03/25/21 18:00 03/25/21 20:00 Temperature 37.1 C Pulse Rate 92 85 118 H Respiratory Rate 20 Blood Pressure 115/95 H Pulse Oximetry 98 03/25/21 21:40 03/25/21 21:59 03/26/21 00:00 Temperature 37.0 C Pulse Rate 105 H 106 H 90 Respiratory Rate 20 Blood Pressure 144/86 H Pulse Oximetry 97 03/26/21 02:00 03/26/21 04:00 03/26/21 06:00 Temperature Pulse Rate 83 83 98 Respiratory Rate Blood Pressure Pulse Oximetry 03/26/21 08:00 03/26/21 10:02 Temperature 36.9 C Pulse Rate 97 97 Respiratory Rate 16 Blood Pressure 137/91 H Pulse Oximetry 97 Intake/Output Intake/Output: Intake & Output 03/23/21 03/24/21 03/25/21 03/26/21 23:59 23:59 23:59 23:59 Intake Total 1880 1490 Output Total 740 1600 Balance 1140 -110 Meds/Results Medications: Active Medications Generic Name Dose Route Start Last Admin Trade Name Freq PRN Reason Stop Dose Admin Amlodipine Besylate 10 mg 03/25/21 17:40 03/26/21 10:01 Amlodipine Besylate 5 Mg Tablet PO 10 mg DAILY MAL Administration Aspirin 81 mg 03/26/21 09:00 03/26/21 10:02 Aspirin 81 Mg Enteric Tablet PO 81 mg QAM MAL Administration Heparin Sodium (Porcine) 4,000 units 03/25/21 09:25 03/25/21 23:10 Heparin Sodium 5,000 Units/Ml Vial IV PUSH 4,000 units PRN PRN Administration aPTT less than 55 seconds Heparin Sodium (Porcine) 3,500 units 03/25/21 09:25 Heparin Sodium 5,000 Units/Ml Vial IV PUSH PRN PRN aPTT 55 - 70 seconds Heparin Sodium/Dextrose 25,000 units in 250 mls @ 16 mls/hr 03/25/21 09:25 03/26/21 05:00 Heparin Sodium/D5w 100 Units/Ml IV CONT 1,600 units/hr .[id number] [facility] 16 mls/hr Titration Protocol 1,600 UNITS/HR Lisinopril 20 mg 03/25/21 17:40 03/26/21 10:02 Lisinopril 20 Mg Tablet PO 20 mg DAILY
[2021-03-26 11:07] LABS: Partial Thromboplastin Time 34.2 SECONDS (22.3-36.8)
[2021-03-26] MEDS: HEPARIN SODIUM 5,000 UNITS/ML VIAL 4000 UNITS IV PUSH (11:40)
--- NOTE | 2021-03-26 11:59 | PM.IMPN ---
Progress Note: A&P Assessment and Plan (1) Chest pain: Code(s): R07.9 - Chest pain, unspecified Status: Acute Assessment and Plan: The patient presented to the emergency department for evaluation of intermittent chest pain which has been ongoing for a couple of weeks with associated dyspnea with exertion. His troponin was once again found to be elevated, a bit more so than what it was during his last visit, and he is being admitted in this setting. He has been seen by Dr. Godwin who has increased his metoprolol dose and he plans on a left heart catheterization tomorrow for further evaluation. The patient is currently on a heparin drip which will be continued. Denies anymore chest pain at this time (2) Elevated troponin: Code(s): R77.8 - Other specified abnormalities of plasma proteins Status: Acute Assessment and Plan: See chest pain (3) Hypertension: Code(s): I10 - Essential (primary) hypertension Status: Chronic Assessment and Plan: Blood pressures remain elevated and he does admit that he did not take his medications this morning as he came to the hospital instead. We will continue with his amlodipine and lisinopril. (4) Leukocytosis: Code(s): D72.829 - Elevated white blood cell count, unspecified Status: Acute Assessment and Plan: He has a mild elevation in his white blood cell count with normal differential, etiology not entirely clear. Infection seems less likely. (5) Hypercalcemia: Code(s): E83.52 - Hypercalcemia Status: Acute Assessment and Plan: Additionally the patient's calcium level was elevated 11.6, normal on labs obtained just 5 days ago. I suspect this is due to an increase in Tums use. Will hold Tums for now and repeat calcium level in a.m.. (6) Tobacco use: Code(s): Z72.0 - Tobacco use Status: Acute Assessment and Plan: Smoking cessation is imperative and was discussed. (7) Lesion of right [place] kidney: Code(s): N28.9 - Disorder of kidney and ureter, unspecified Status: Acute Assessment and Plan: Renal ultrasound ordered for further evaluation of right kidney lesion. Time Spent With Patient Time with patient: 25 - 35 minutes Subjective Date/time seen: 03/26/21 11:59 Interval history: Date of service 03/26/2021: patient reports feeling well at this time. He still has mild substernal chest pain when he eats. He does have history of heartburn usually takes Tums as needed at home. Denies any shortness of breath, cough, nausea, vomiting, abdominal pain, leg swelling, calf pain, lightheadedness, dizziness, or any other symptoms at this time. Review of Systems Review of Systems: All systems reviewed & are unremarkable except as noted in HPI and below Exam Narrative: General: 35-year-old man laying flat in bed watching TV. Appears comfortable. In no acute distress. Skin: No jaundice or cyanosis. Good skin turgor. Neck: Full range of motion. Supple. Respiratory: Lungs are clear to auscultation bilaterally. No bony chest wall tenderness. Cardiovascular: The heart has a regular rate and rhythm without murmur. Lower extremities: No lower extremity edema. Distal pulses are easily palpated. No calf tenderness to palpation. Gastrointestinal: The abdomen is soft, nontender and nondistended with active bowel sounds. Psychiatric: Lucid and oriented. Memory intact. Neurologic: No focal deficits. Speech is clear. No facial drooping. Objective Data Vital Signs Vital Signs: Vital Signs - 24 hr 03/25/21 12:00 03/25/21 14:00 03/25/21 14:32 Temperature 98 F Pulse Rate 92 124 H 98 Respiratory Rate 24 H Blood Pressure 185/117 H Pulse Oximetry 98 03/25/21 16:00 03/25/21 16:30 03/25/21 18:00 Temperature 98.5 F Pulse Rate 85 92 85 Respiratory Rate 20 Blood Pressure 190/114 H Pulse Oximetry 99 03/25/21 20:00 1
[2021-03-26] MEDS: PANTOPRAZOLE 40 MG TABLET PO ×2 (14:35→20:25)
[2021-03-26 17:15] LABS: Partial Thromboplastin Time 92.5 SECONDS (22.3-36.8)
[2021-03-26] MEDS: HEPARIN SOD/D5W 100 UNITS/ML 25,000 UNITS/250 ML BAG 19 UNITS IV CONT (18:24)
[2021-03-26 23:29] LABS: Partial Thromboplastin Time 91.8 SECONDS (22.3-36.8)
[2021-03-27] VITALS (30 sets, daily range): BP systolic 118–144; BP diastolic 75–92; PULSE 73–101; RESP 10–22; TEMP 36.2–36.6; O2SAT 94–100
[2021-03-27 05:50] LABS: Hematocrit 41.8 % (42.0-52.0); Hemoglobin 14.5 g/dL (14.0-18.0); Mean Corpuscular HGB Conc 34.7 g/dl (32-36); Mean Corpuscular Hemoglobin 32.1 pg (26-34); Mean Corpuscular Volume 92.5 fl (80-100); Mean Platelet Volume 8.9 fl (7.4-10.4); Platelet Count Result 371 k/mm3 (150-375); Red Blood Count 4.52 M/mm3 (4.6-6.20); Red Cell Distribution Width 12.9 % (11.5-14.5); White Blood Count 12.8 K/mm3 (4.5-10.0)
[2021-03-27 05:56] LABS: Anion Gap 6 mmol/L (8-16); Blood Urea Nitrogen 15 mg/dL (9-20); Calcium 9.2 mg/dL (8.4-10.2); Carbon Dioxide 29 mmol/L (22-30); Chloride 105 mmol/L (98-107); Cholesterol 136 mg/dL (0-200); Estimated CRCL calculation 102 ml/min; Estimated Glomerular Filt Rate > 60; Glucose 98 mg/dL (65-110); HDL Direct 30 mg/dL; Potassium 3.8 mmol/L (3.4-5.0); Sodium 140 mmol/L (137-145); Triglycerides 152 mg/dL (<150)
[2021-03-27 06:08] LABS: LDL Cholesterol Direct 82 mg/dL
[2021-03-27 06:19] LABS: Prothrombin Time 12.8 Seconds (11.1-14.7)
[2021-03-27 06:21] LABS: Partial Thromboplastin Time 91.1 SECONDS (22.3-36.8)
[2021-03-27] MEDS: HEPARIN SOD/D5W 100 UNITS/ML 25,000 UNITS/250 ML BAG 19 UNITS IV CONT (08:09)
[2021-03-27] MEDS: METOPROLOL TARTRATE 50 MG TAB PO ×2 (08:11→20:29)
[2021-03-27] MEDS: ASPIRIN 81 MG ENTERIC TABLET PO (08:11)
[2021-03-27] MEDS: PANTOPRAZOLE 40 MG TABLET PO ×2 (08:12→20:29)
[2021-03-27] MEDS: amLODIPine BESYLATE 5 MG TABLET 10 MG PO (08:12)
[2021-03-27] MEDS: lisinopriL 20 MG TABLET PO (08:13)
[2021-03-27] MEDS: ROSUVASTATIN 10 MG TABLET PO (08:13)
--- NOTE | 2021-03-27 08:31 | WPDMODSED ---
Moderate Sedation Note-Pt Data Patient Data Diagnosis: Chest pain elevated troponin hypertension Present Complaint: chest pain Procedure to be performed/Plan: left heart catheterization Allergies Allergy/AdvReac Type Severity Reaction Status Date / Time No Known Allergies Allergy Verified 03/25/21 05:17 Home Medications Medication Instructions Recorded Confirmed Type amlodipine-benazepril [Lotrel] 1 cap PO DAILY 03/19/21 03/25/21 History metoprolol tartrate 25 mg PO Q12HR #60 tablet 03/20/21 03/25/21 Rx aspirin [Adult Low Dose Aspirin] 81 mg PO QAM 03/25/21 03/25/21 History Current Medications: Active Medications Amlodipine Besylate (Amlodipine Besylate 5 Mg Tablet) 10 mg PO DAILY [facility] Last Admin: 03/27/21 08:12 Dose: 10 mg Documented by: Aspirin (Aspirin 81 Mg Enteric Tablet) 81 mg PO QAM [facility] Last Admin: 03/27/21 08:11 Dose: 81 mg Documented by: Calcium Carbonate (Calcium Carbonate (Tums) 500 Mg (200 Mg Elemental)) 200 mg PO Q6H PRN PRN Reason: Indigestion Heparin Sodium (Porcine) (Heparin Sodium 5,000 Units/Ml Vial) 4,000 units IV PUSH PRN PRN PRN Reason: aPTT less than 55 seconds Last Admin: 03/26/21 11:40 Dose: 4,000 units Documented by: Heparin Sodium (Porcine) (Heparin Sodium 5,000 Units/Ml Vial) 3,500 units IV PUSH PRN PRN PRN Reason: aPTT 55 - 70 seconds Heparin Sodium/Dextrose (Heparin Sodium/D5w 100 Units/Ml) 25,000 units in 250 mls @ 19 mls/hr IV CONT .[id number] [facility]; Protocol Last Admin: 03/27/21 08:09 Dose: 1,900 units/hr, 19 mls/hr Documented by: Lisinopril (Lisinopril 20 Mg Tablet) 20 mg PO DAILY [facility] Last Admin: 03/27/21 08:13 Dose: 20 mg Documented by: Metoprolol Tartrate (Metoprolol Tartrate 50 Mg Tab) 50 mg PO Q12HR [facility] Last Admin: 03/27/21 08:11 Dose: 50 mg Documented by: Morphine Sulfate (Morphine Sulfate (*Crx) 4 Mg/Ml Inj) 4 mg IV PUSH Q2H PRN PRN Reason: Pain Rated 7-10 Pantoprazole Sodium (Pantoprazole 40 Mg Tablet) 40 mg PO Q12HR [facility] [place] Last Admin: 03/27/21 08:12 Dose: 40 mg Documented by: Rosuvastatin Calcium (Rosuvastatin 10 Mg Tablet) 10 mg PO QAM [facility] Last Admin: 03/27/21 08:13 Dose: 10 mg Documented by: Sedation/Anesthesia: No previous sedation/anesthesia problems (including family history). [facility] Past Medical History Medical History COVID-19 (02/2021) Hepatic steatosis Hypertension Lesion of right [place] kidney 2.5 cm hypoenhancing lesion of the right kidney noted on CT taken 03/19/2021. Tobacco use Surgical History Surgical History (Updated 03/25/21 @ 13:12 by Tresa Toribio PA-C) History of oral surgery Family History Family History Father Healthy adult Grandparent Pancreatic adenocarcinoma Grandparent Breast cancer Social History Social History (Updated 03/25/21 @ 13:14 by Tresa Toribio PA-C) Social History: Surrogate decision maker: Jaida Caldwell, spouse. Code status: Full code. Smoking packs per day: 0.5 Smoking cigarettes per day: 10.0 Years smoked: 20 Smoking pack-years: 10.00 Smoking status: Never smoker Tobacco type: cigarettes Alcohol intake: current Drinks per week: 6 Substance use: never Substance use type: does not use Additional living arrangements comments: with [address] 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
--- NOTE | 2021-03-27 08:50 | PC.NURSE ---
Patient to laboratory secretary
[2021-03-27 09:42] LABS: Activated Clotting Time 87 SEC (74-137)
--- NOTE | 2021-03-27 09:44 | WPDCARDPROC ---
Cardiac Cath Procedure Note Date of procedure:: 03/27/21 Performing physician:: Darwin Godwin MD Indication:: acute coronary syndrome /non-STEMI Brief clinical history:: this is a 35-year-old man with significant hypertension who is entered the hospital a couple of times recently with hypertension out of control and chest pain. On the previous admission this was attributed to medical noncompliance. On this admission he reports medical compliance and he has had a mild troponin rise prompting the recommendation for an angiogram. Procedure Procedure performed:: Left ventriculogram coronary angiogram Sedation/Medication given:: fentanyl 50 mg Versed 2 mg case start time 9:12 a.m. case end time 9:38 a.m. sedation provided by Daria Vega RN, trained observer Access site:: right femoral artery Estimated blood loss:: 15 cc Procedure note:: patient was brought to the cardiac catheterization lab in the postabsorptive state the right femoral triangle was prepared and draped the usual fashion. Anesthesia was provided with 1% lidocaine infiltrated locally. Using the modified Seldinger technique a 5 [place] sheath was placed into the right femoral artery. Left heart catheterization was then carried out. A 5 [place] angled pigtail catheter was used to measure left-sided hemodynamics and to inject LV g in the GRIFFITH projection. After this I used a standard 5 [place] FL4 catheter to engage and inject the left coronary artery. Then a 5 [place] JR4 catheter was Attempted to engage and inject the right coronary artery. after this was not successful I used a WRP catheter to study the RCA. After this the cineangiograms were reviewed and the case was terminated. The patient was taken to the holding area for manual sheath removal and post cath recovery. There were no procedural complications and he left the [facility] laboratory director with no evidence of a groin hematoma. Findings:: Hemodynamics: Central aortic pressure is 122 over 76 left ventricle 124 over 8 end-diastolic 20. No gradient on pullback across the aortic valve. Left ventricle: The LV is normal in size all segments could contract appropriately the global ejection fraction is 50-55% by visual estimation. The left main coronary artery is patent but very short the left anterior descending is a medium caliber artery extending down to the apex. There is a high-grade stenosis of 90% in the mid LAD with very mild disease prior to this. The circumflex is a moderate caliber artery giving rise to marginal branches and 2 posterior branches. The 3rd marginal branch is a medium caliber artery which has a 99% stenosis at its origin. The right coronary artery is moderate caliber and dominant to the posterior circulation terminating in an RPDA. The ostium of the right coronary artery has stenosis initially seen by damping of the pressure when the vessel was engaged. I used a WRP catheter to engage the right coronary. The catheter was withdrawn to the ostium and subsequent angiography demonstrated a 70% stenosis at the origin of the right coronary artery. The remainder of the RCA is free of significant disease. Conclusion:: 1. Unfortunate young man with multivessel coronary artery disease including high-grade lesions in the mid LAD and subtotal lesion of the 3rd OM branch of circumflex. The subtotal complex OM3 lesion is probably the culprit for his presentation. The patient also has 70-80% stenosis of the right coronary artery just after its ostium. 2. Preserved left ventricular systolic function 3. patient will be transferred for either surgical revascularization or consideration of multivessel PCI given his young age. Darwin Godwin MD [facility]
[2021-03-27] MEDS: SODIUM CHLORIDE 0.9% IV 1,000 ML 125 ML IV CONT (10:43)
--- NOTE | 2021-03-27 12:39 | PM.IMPN ---
Progress Note: A&P Assessment and Plan (1) Chest pain: Code(s): R07.9 - Chest pain, unspecified Status: Acute Assessment and Plan: The patient presented to the emergency department for evaluation of intermittent chest pain which has been ongoing for a couple of weeks with associated dyspnea with exertion. His troponin was once again found to be elevated, a bit more so than what it was during his last visit, and he is being admitted in this setting. He has been seen by Dr. Godwin who has increased his metoprolol dose and performed a left heart catheterization today which showed multivessel coronary artery disease including high-grade lesions in the mid LAD and subtotal lesion of the 3rd OM branch of circumflex. The patient also has 70-80% stenosis of the right coronary artery just after its ostium. Cardiology is working on the patient being transferred for bypass surgery vs multiple stents to be placed. Denies anymore chest pain at this time (2) Elevated troponin: Code(s): R77.8 - Other specified abnormalities of plasma proteins Status: Acute Assessment and Plan: See chest pain (3) Hypertension: Code(s): I10 - Essential (primary) hypertension Status: Chronic Assessment and Plan: Blood pressures have been well controlled since admission. We will continue with his amlodipine and lisinopril. (4) Leukocytosis: Code(s): D72.829 - Elevated white blood cell count, unspecified Status: Acute Assessment and Plan: He has a mild elevation in his white blood cell count with normal differential, etiology not entirely clear. Infection seems less likely. (5) Hypercalcemia: Code(s): E83.52 - Hypercalcemia Status: Acute Assessment and Plan: Additionally the patient's calcium level was elevated 11.6, normal on labs obtained just 5 days ago. I suspect this is due to an increase in Tums use. Will hold Tums for now and repeat calcium level in a.m.. (6) Tobacco use: Code(s): Z72.0 - Tobacco use Status: Acute Assessment and Plan: Smoking cessation is imperative and was discussed. (7) Lesion of right [place] kidney: Code(s): N28.9 - Disorder of kidney and ureter, unspecified Status: Acute Assessment and Plan: Renal ultrasound showed 1.9 cm benign cyst in right kidney. No further work up necessary. Subjective Date/time seen: 03/27/21 12:39 Interval history: Date of service 03/27/2021: Patient reports feeling well at this time, he is upset about the cath findings and needing to be transferred. He denies anymore chest pain. Denies any shortness of breath, cough, nausea, vomiting, abdominal pain, leg swelling, calf pain, lightheadedness, dizziness, or any other symptoms at this time. Review of Systems Review of Systems: All systems reviewed & are unremarkable except as noted in HPI and below Exam Narrative: General: 35-year-old man laying flat in bed after his Cath. Appears comfortable. In no acute distress. Skin: No jaundice or cyanosis. Good skin turgor. Neck: Full range of motion. Supple. Respiratory: Lungs are clear to auscultation bilaterally. No bony chest wall tenderness. Cardiovascular: The heart has a regular rate and rhythm without murmur. Lower extremities: No lower extremity edema. Distal pulses are easily palpated. No calf tenderness to palpation. Gastrointestinal: The abdomen is soft, nontender and nondistended with active bowel sounds. Psychiatric: Lucid and oriented. Memory intact. Neurologic: No focal deficits. Speech is clear. No facial drooping. Objective Data Vital Signs Vital Signs: Vital Signs - 24 hr 03/26/21 12:58 03/26/21 16:00 03/26/21 16:44 Temperature 98.4 F Pulse Rate 86 92 Respiratory Rate 18 Blood Pressure 122/82 Pulse Oximetry 97 96 03/26/21 18:00 03/26/21 20:00 03/26/21 20:25 Temperature 97.6 F Pulse Rate 88 9
--- NOTE | 2021-03-27 14:50 | PM.TDS ---
Transfer Discharge Sum: Prov Provider Date of admission: 03/25/21 15:36 Primary care physician: Kel Phillips, Admitting clinician: Gilberto Denis MD Consults: 03/25/21 09:44 Consult to Physician Routine Comment: Consulting Provider: Darwin Godwin Reason for consultation: NSTEMI Has provider been notified: Yes DS: Admitting Diagnosis Discharge Date 03/27/21 Admitting Diagnosis Chest pain DS: Discharge Diagnosis Discharge Diagnosis (1) Chest pain: Code(s): R07.9 - Chest pain, unspecified Status: Acute Assessment and Plan: Patient is a 35-year-old otherwise healthy male with no chronic medical history, who presented to the emergency department for evaluation of intermittent chest pain which has been ongoing for a couple of weeks with associated dyspnea with exertion. His troponin was once again found to be elevated, a bit more so than what it was during his last visit, and he is being admitted in this setting. He has been seen by Dr. Godwin who has increased his metoprolol dose and performed a left heart catheterization today which showed multivessel coronary artery disease including high-grade lesions in the mid LAD and subtotal lesion of the 3rd OM branch of circumflex. The patient also has 70-80% stenosis of the right coronary artery just after its ostium. Cardiology is working on the patient being transferred for bypass surgery vs multiple stents to be placed to [facility] under Cardiology Interventionalist Dr. Damon and to the hospitalist service. (2) Elevated troponin: Code(s): R77.8 - Other specified abnormalities of plasma proteins Status: Acute Assessment and Plan: See chest pain (3) Hypertension: Code(s): I10 - Essential (primary) hypertension Status: Chronic Assessment and Plan: Blood pressures have been well controlled since admission. We will continue with his amlodipine and lisinopril. (4) Leukocytosis: Code(s): D72.829 - Elevated white blood cell count, unspecified Status: Acute Assessment and Plan: He has a mild elevation in his white blood cell count with normal differential, etiology not entirely clear. Infection seems less likely. (5) Hypercalcemia: Code(s): E83.52 - Hypercalcemia Status: Acute Assessment and Plan: Additionally the patient's calcium level was elevated 11.6, normal on labs obtained just 5 days ago. I suspect this is due to an increase in Tums use. Will hold Tums for now and repeat calcium level in a.m.. (6) Tobacco use: Code(s): Z72.0 - Tobacco use Status: Acute Assessment and Plan: Smoking cessation is imperative and was discussed. (7) Lesion of right [place] kidney: Code(s): N28.9 - Disorder of kidney and ureter, unspecified Status: Acute Assessment and Plan: Renal ultrasound showed 1.9 cm benign cyst in right kidney. No further work up necessary. Transfer Discharge Sum: Med Medications Active and Home Medications: Home Medications amlodipine-benazepril [Lotrel] 1 cap PO DAILY 03/19/21 [History Confirmed 03/25/21] metoprolol tartrate 25 mg PO Q12HR #60 tablet 03/20/21 [Rx Confirmed 03/25/21] aspirin [Adult Low Dose Aspirin] 81 mg PO QAM 03/25/21 [History Confirmed 03/25/21] Active Medications Amlodipine Besylate (Amlodipine Besylate 5 Mg Tablet) 10 mg PO DAILY [facility] Last Admin: 03/27/21 08:12 Dose: 10 mg Documented by: Aspirin (Aspirin 81 Mg Enteric Tablet) 81 mg PO QAM [facility] Last Admin: 03/27/21 08:11 Dose: 81 mg Documented by: Calcium Carbonate (Calcium Carbonate (Tums) 500 Mg (200 Mg Elemental)) 200 mg PO Q6H PRN PRN Reason: Indigestion Heparin Sodium (Porcine) (Heparin Sodium 5,000 Units/Ml Vial) 4,000 units IV PUSH PRN PRN PRN Reason: aPTT less than 55 seconds Last Admin: 03/26/21 11:40 Dose: 4,000 units Documented by: Heparin Sodium (Porc
[2021-03-27 21:54] LABS: EDCOVIDSCREEN Negative (Negative)
[2021-03-28] VITALS (16 sets, daily range): BP systolic 124–143; BP diastolic 76–93; PULSE 65–98; RESP 14–20; TEMP 36.5–37.2; O2SAT 97–99
[2021-03-28 05:26] LABS: Partial Thromboplastin Time 59.3 SECONDS (22.3-36.8)
[2021-03-28] MEDS: HEPARIN SOD/D5W 100 UNITS/ML 25,000 UNITS/250 ML BAG 19 UNITS IV CONT (05:27)
[2021-03-28] MEDS: HEPARIN SODIUM 5,000 UNITS/ML VIAL 3500 UNITS IV PUSH (06:15)
[2021-03-28] MEDS: lisinopriL 20 MG TABLET PO (09:06)
[2021-03-28] MEDS: ASPIRIN 81 MG ENTERIC TABLET PO (09:06)
[2021-03-28] MEDS: PANTOPRAZOLE 40 MG TABLET PO ×2 (09:07→20:25)
[2021-03-28] MEDS: METOPROLOL TARTRATE 50 MG TAB PO ×2 (09:07→20:25)
[2021-03-28] MEDS: ROSUVASTATIN 10 MG TABLET PO (09:07)
[2021-03-28] MEDS: amLODIPine BESYLATE 5 MG TABLET 10 MG PO (09:07)
[2021-03-28 12:28] LABS: Partial Thromboplastin Time 98.9 SECONDS (22.3-36.8)
[2021-03-28 14:10] LABS: Calcium/Creatinine Ratio, Ur 628 mg/g creat (10-240); Urine Creatinine, Random 24 mg/dL (20-320)
--- NOTE | 2021-03-28 14:51 | PM.IMPN ---
Progress Note: A&P Assessment and Plan (1) Chest pain: Code(s): R07.9 - Chest pain, unspecified Status: Acute Assessment and Plan: Patient is a 35-year-old otherwise healthy male with no chronic medical history, who presented to the emergency department for evaluation of intermittent chest pain which has been ongoing for a couple of weeks with associated dyspnea with exertion. His troponin was once again found to be elevated, a bit more so than what it was during his last visit, and he is being admitted in this setting. He has been seen by Dr. Godwin who has increased his metoprolol dose and performed a left heart catheterization which showed multivessel coronary artery disease including high-grade lesions in the mid LAD and subtotal lesion of the 3rd OM branch of circumflex. The patient also has 70-80% stenosis of the right coronary artery just after its ostium. Cardiology is working on the patient being transferred for bypass surgery vs multiple stents to be placed to [facility] under Cardiology Interventionalist Dr. Damon and to the hospitalist service. (2) Elevated troponin: Code(s): R77.8 - Other specified abnormalities of plasma proteins Status: Acute Assessment and Plan: See chest pain (3) Hypertension: Code(s): I10 - Essential (primary) hypertension Status: Chronic Assessment and Plan: Blood pressures have been well controlled since admission. We will continue with his amlodipine and lisinopril. (4) Leukocytosis: Code(s): D72.829 - Elevated white blood cell count, unspecified Status: Acute Assessment and Plan: He has a mild elevation in his white blood cell count with normal differential, etiology not entirely clear. Infection seems less likely. (5) Hypercalcemia: Code(s): E83.52 - Hypercalcemia Status: Acute Assessment and Plan: Additionally the patient's calcium level was elevated 11.6, normal on labs obtained just 5 days prior. Suspect secondary to Tums use. Held Tums and calcium has normalized. (6) Tobacco use: Code(s): Z72.0 - Tobacco use Status: Acute Assessment and Plan: Smoking cessation is imperative and was discussed. (7) Lesion of right [place] kidney: Code(s): N28.9 - Disorder of kidney and ureter, unspecified Status: Acute Assessment and Plan: Renal ultrasound showed 1.9 cm benign cyst in right kidney. No further work up necessary. Subjective Date/time seen: 03/28/21 14:51 Interval history: Patient reports feeling well at this time. He denies anymore chest pain. Denies any shortness of breath, cough, nausea, vomiting, abdominal pain, leg swelling, calf pain, lightheadedness, dizziness, or any other symptoms at this time. At this time we are waiting for a bed at [facility] as patient is being transferred by cardiology. Review of Systems Review of Systems: General: Denies fevers, chills, bodyaches, or fatigue Eyes: Denies vision changes or eye pain ENT: Denies nasal congestion or sore throat Respiratory: Denies cough or shortness of breath Cardiovascular: Denies chest pain, palpitations, or lower extremity edema Gastrointestinal: Denies abdominal pain, vomiting, or diarrhea Genitourinary: Denies dysuria or urinary frequency Musculoskeletal: Denies back pain or muscle aches Neurological: Denies headache, paraesthesias, or motor weakness Integumentary: Denies rash or other skin lesions Exam Narrative: General: No acute distress, non toxic appearing Eyes: PERRL, no scleral icterus HEENT: NCAT, external ears normal, MMM Respiratory: No respiratory distress, Lungs CTA bilaterally, no wheezing Cardiovascular: RRR, no murmur Abdominal: Soft, nontender, non distended, no rebound or guarding Musculoskeletal: Moves all 4 extremities, no edema Neurological: A/Ox3, speech normal, no facial asymmetry Skin: Warm, dry, no rashes
--- NOTE | 2021-03-28 17:52 | PM.PNCARD ---
Progress Note: A&P Assessment and Plan (1) Non-ST elevation NE (NSTEMI): Code(s): I21.4 - Non-ST elevation (NSTEMI) myocardial infarction Status: Acute Assessment and Plan: Mild elevation in troponin noted on admission for hypertension and chest pain. Coronary angiogram was performed that revealed multivessel coronary disease involving the mid LAD, 3rd OM branch of the circumflex, and the right coronary artery. It was recommended that the patient be transferred to [facility] for consideration for high risk PCI. For now, he has been placed on medical therapy with aspirin, rosuvastatin, metoprolol, lisinopril, amlodipine, and heparin. He is stable and not experiencing any angina while awaiting transfer to another facility. Subjective Date/time seen: 03/28/21 13:45 Interval history: Cardiology follow-up for coronary artery disease Date of service 03/28/2021: Patient denies any chest pain, shortness of breath today. He is awaiting transfer to [facility] for high risk PCI versus CABG. Review of Systems Constitutional: Constitutional: Reports no additional constitutional complaints Eyes: Eyes: Reports no additional eye complaints ENT: Reports system reviewed and no additional complaints, except as documented Cardiovascular: Cardiovascular: Reports as per HPI Respiratory: Respiratory: Reports no additional respiratory complaints Gastrointestinal: Gastrointestinal: Reports no additional gastrointestinal complaints Musculoskeletal: Musculoskeletal: Reports no additional musculoskeletal complaints Integumentary/Breasts: Skin/Breast: Reports system reviewed and no additional complaints, except as docu Neurologic: Reports system reviewed and no additional complaints, except as documented Psychiatric: Psychiatric: Reports no additional psychiatric complaints Endocrine: Endocrine: Reports no additional endocrine complaints Hematologic/Lymphatic: Hematologic/Lymphatic: Reports no additional hematologic/lymphatic complaints Allergic/Immunologic: Allergic/Immunologic: Reports no additional allergic/immunologic complaints Exam Const: General: comfortable and no acute distress Other: Overweight gentleman lying comfortably in bed in no distress. Alert and oriented. Pleasant and cooperative. HENMT: Mouth: Yes moist mucous membranes Eyes: Sclera: sclerae normal Pupils: Equal, round and reactive pupils present Neck: Neck: supple and no JVD Other: Carotid pulses are intact without bruits Resp: Effort & Inspection: normal respiratory effort Auscultation: clear to auscultation bilaterally Cardio: Rate: regular rate Rhythm: regular rhythm GI: Auscultation: normal bowel sounds Skin: General skin exam: normal color Neuro: Cranial nerves: Yes Equal, round and reactive pupils present Cognition (Neuro): normal cognition Extrem: General: normal to inspection Objective Data Vital Signs Vital Signs: Vital Signs - 24 hr 03/27/21 18:00 03/27/21 19:57 03/27/21 20:00 Temperature 36.5 C Pulse Rate 73 86 88 Respiratory Rate 20 20 Blood Pressure 141/77 H Pulse Oximetry 97 97 03/27/21 20:29 03/27/21 22:00 03/27/21 23:06 Temperature 36.6 C Pulse Rate 88 89 87 Respiratory Rate 18 Blood Pressure 144/83 H Pulse Oximetry 97 03/28/21 00:00 03/28/21 02:00 03/28/21 04:00 Temperature 36.6 C Pulse Rate 93 82 98 Respiratory Rate 18 20 Blood Pressure 143/93 H Pulse Oximetry 97 99 03/28/21 06:00 03/28/21 06:56 03/28/21 08:00 Temperature 36.6 C Pulse Rate 86 65 67 Respiratory Rate 18 Blood Pressure 138/83 Pulse Oximetry 99 03/28/21 10:00 03/28/21 12:00 03/28/21 14:00 Temperature 36.9 C Pulse Rate 91 67 84 Respiratory Rate 14 Blood Pressure 124/81 Pulse Oximetry 98 03/28/21 16:00 Temperature 37.2 C Pulse Rate 80 Respiratory Rate 16 Blood Pressure 127/76 Pulse Oximetry 99 Intake/Output Intake/Output: Intake & Output 03/25/21 03/26/21 1
[2021-03-28] MEDS: HEPARIN SOD/D5W 100 UNITS/ML 25,000 UNITS/250 ML BAG 21 UNITS IV CONT (17:55)
[2021-03-28 18:15] LABS: Partial Thromboplastin Time 91.7 SECONDS (22.3-36.8)
[2021-03-29] VITALS (9 sets, daily range): BP systolic 118–148; BP diastolic 74–90; PULSE 66–82; RESP 18–20; TEMP 36.6–36.7; O2SAT 97–99
[2021-03-29 05:41] LABS: Hematocrit 42.6 % (42.0-52.0); Hemoglobin 14.6 g/dL (14.0-18.0); Mean Corpuscular HGB Conc 34.3 g/dl (32-36); Mean Corpuscular Hemoglobin 31.6 pg (26-34); Mean Corpuscular Volume 92.2 fl (80-100); Mean Platelet Volume 9.1 fl (7.4-10.4); Platelet Count Result 373 k/mm3 (150-375); Red Blood Count 4.62 M/mm3 (4.6-6.20); Red Cell Distribution Width 13.1 % (11.5-14.5); White Blood Count 12.9 K/mm3 (4.5-10.0)
[2021-03-29 05:49] LABS: Anion Gap 8 mmol/L (8-16); Blood Urea Nitrogen 11 mg/dL (9-20); Calcium 9.4 mg/dL (8.4-10.2); Carbon Dioxide 26 mmol/L (22-30); Chloride 101 mmol/L (98-107); Estimated CRCL calculation 111 ml/min; Estimated Glomerular Filt Rate > 60; Glucose 106 mg/dL (65-110); Potassium 3.7 mmol/L (3.4-5.0); Sodium 135 mmol/L (137-145)
[2021-03-29 05:51] LABS: Partial Thromboplastin Time 121.2 SECONDS (22.3-36.8)
[2021-03-29] MEDS: HEPARIN SOD/D5W 100 UNITS/ML 25,000 UNITS/250 ML BAG 19 UNITS IV CONT ×2 (05:59→07:53)
[2021-03-29] MEDS: amLODIPine BESYLATE 5 MG TABLET 10 MG PO (07:55)
[2021-03-29] MEDS: ROSUVASTATIN 10 MG TABLET PO (07:55)
[2021-03-29] MEDS: ASPIRIN 81 MG ENTERIC TABLET PO (07:55)
[2021-03-29] MEDS: lisinopriL 20 MG TABLET PO (07:55)
[2021-03-29] MEDS: PANTOPRAZOLE 40 MG TABLET PO (07:55)
[2021-03-29] MEDS: METOPROLOL TARTRATE 50 MG TAB PO (07:55)
--- NOTE | 2021-03-29 11:13 | PM.PNCARD ---
Progress Note: A&P Assessment and Plan (1) Non-ST elevation AR (NSTEMI): Code(s): I21.4 - Non-ST elevation (NSTEMI) myocardial infarction Status: Acute Assessment and Plan: Mild elevation in troponin noted on admission for hypertension and chest pain. Coronary angiogram was performed that revealed multivessel coronary disease involving the mid LAD, 3rd OM branch of the circumflex, and the right coronary artery. It was recommended that the patient be transferred to [facility] for consideration for high risk PCI. For now, he has been placed on medical therapy with aspirin, rosuvastatin, metoprolol, lisinopril, amlodipine, and heparin. In process of transfer now Subjective Date/time seen: 03/29/21 11:13 Interval history: Cardiology follow-up for coronary artery disease Date of service 03/28/2021: Patient denies any chest pain, shortness of breath today. He is awaiting transfer to [facility] for high risk PCI versus CABG. Date of service 03/29/2021: He is still having some exertional chest pain whenever he is walking around which will last for a brief period time. He is in the process of transferring to [facility] for further care. No shortness of breath and no groin pain Review of Systems Constitutional: Constitutional: Reports no additional constitutional complaints Eyes: Eyes: Reports no additional eye complaints ENT: Reports system reviewed and no additional complaints, except as documented Cardiovascular: Cardiovascular: Reports as per HPI Respiratory: Respiratory: Reports no additional respiratory complaints Gastrointestinal: Gastrointestinal: Reports no additional gastrointestinal complaints Musculoskeletal: Musculoskeletal: Reports no additional musculoskeletal complaints Integumentary/Breasts: Skin/Breast: Reports system reviewed and no additional complaints, except as docu Neurologic: Reports system reviewed and no additional complaints, except as documented Psychiatric: Psychiatric: Reports no additional psychiatric complaints Endocrine: Endocrine: Reports no additional endocrine complaints Hematologic/Lymphatic: Hematologic/Lymphatic: Reports no additional hematologic/lymphatic complaints Allergic/Immunologic: Allergic/Immunologic: Reports no additional allergic/immunologic complaints Exam Const: General: comfortable and no acute distress Other: Overweight gentleman lying comfortably in bed in no distress. Alert and oriented. Pleasant and cooperative. HENMT: Mouth: Yes moist mucous membranes Eyes: Sclera: sclerae normal Pupils: Equal, round and reactive pupils present Neck: Neck: supple and no JVD Other: Carotid pulses are intact without bruits Resp: Effort & Inspection: normal respiratory effort Auscultation: clear to auscultation bilaterally Cardio: Rate: regular rate Rhythm: regular rhythm Other: PMI difficult to palpate because of his size otherwise unremarkable exam GI: Auscultation: normal bowel sounds Skin: General skin exam: normal color Neuro: Cranial nerves: Yes Equal, round and reactive pupils present Cognition (Neuro): normal cognition Extrem: General: normal to inspection Objective Data Vital Signs Vital Signs: Vital Signs - 24 hr 03/28/21 12:00 03/28/21 14:00 03/28/21 16:00 Temperature 36.9 C 37.2 C Pulse Rate 67 84 80 Respiratory Rate 14 16 Blood Pressure 124/81 127/76 Pulse Oximetry 98 99 03/28/21 18:00 03/28/21 19:49 03/28/21 20:00 Temperature 36.5 C Pulse Rate 74 76 77 Respiratory Rate 20 20 Blood Pressure 125/78 Pulse Oximetry 99 99 03/28/21 20:25 03/28/21 22:00 03/28/21 23:35 Temperature 36.5 C Pulse Rate 80 84 88 Respiratory Rate 18 Blood Pressure 138/81 Pulse Oximetry 97 03/29/21 00:00 03/29/21 02:00 03/29/21 02:56 Temperature 36.6 C Pulse Rate 72 78 70 Respiratory Rate 18 18 Blood Pressure 148/90 H Pulse Oximetry 97 99 03/29/21 04:00 03/29/21 06:00 03/29/21 07:55 Tem
[2021-03-29 11:46] LABS: Ionized Calcium 4.8 mg/dL (4.8-5.6)
--- NOTE | 2021-03-29 12:47 | PM.TDS ---
Transfer Discharge Sum: Prov Provider Date of admission: 03/25/21 15:36 Primary care physician: Kel Phillips, Admitting clinician: Gilberto Denis MD Consults: 03/25/21 09:44 Consult to Physician Routine Comment: Consulting Provider: Darwin Godwin Reason for consultation: NSTEMI Has provider been notified: Yes Attending physician on discharge: Jace Mojica Discharging clinician: Agueda Padilla Anticipated date of transfer: 03/29/21 Receiving physician/facility: [facility] - Dr. Damon DS: Admitting Diagnosis Discharge Date 03/29/21 Admitting Diagnosis chest pain DS: Discharge Diagnosis Discharge Diagnosis (1) Chest pain: Code(s): R07.9 - Chest pain, unspecified Status: Acute Assessment and Plan: Patient is a 35-year-old otherwise healthy male with no chronic medical history, who presented to the emergency department for evaluation of intermittent chest pain which has been ongoing for a couple of weeks with associated dyspnea with exertion. His troponin was once again found to be elevated, a bit more so than what it was during his last visit, and he is being admitted in this setting. He has been seen by Dr. Godwin who has increased his metoprolol dose and performed a left heart catheterization which showed multivessel coronary artery disease including high-grade lesions in the mid LAD and subtotal lesion of the 3rd OM branch of circumflex. The patient also has 70-80% stenosis of the right coronary artery just after its ostium. Cardiology has set up transfer for bypass surgery vs multiple stents to be placed to [facility] under Cardiology Interventionalist Dr. Damon and to the hospitalist service. (2) Elevated troponin: Code(s): R77.8 - Other specified abnormalities of plasma proteins Status: Acute Assessment and Plan: See chest pain (3) Hypertension: Code(s): I10 - Essential (primary) hypertension Status: Chronic Assessment and Plan: Blood pressures have been well controlled since admission. Continued with his amlodipine and lisinopril. (4) Leukocytosis: Code(s): D72.829 - Elevated white blood cell count, unspecified Status: Acute Assessment and Plan: He had a mild elevation in his white blood cell count with normal differential, etiology not entirely clear. Infection seems less likely. (5) Hypercalcemia: Code(s): E83.52 - Hypercalcemia Status: Acute Assessment and Plan: Additionally the patient's calcium level was elevated 11.6, normal on labs obtained just 5 days prior. Suspect secondary to Tums use. Held Tums and calcium has normalized. (6) Tobacco use: Code(s): Z72.0 - Tobacco use Status: Acute Assessment and Plan: Smoking cessation is imperative and was discussed. (7) Lesion of right [place] kidney: Code(s): N28.9 - Disorder of kidney and ureter, unspecified Status: Acute Assessment and Plan: Renal ultrasound showed 1.9 cm benign cyst in right kidney. No further work up necessary. Transfer Discharge Sum: Med Medications Active and Home Medications: Home Medications amlodipine-benazepril [Lotrel] 1 cap PO DAILY 03/19/21 [History Confirmed 03/25/21] metoprolol tartrate 25 mg PO Q12HR #60 tablet 03/20/21 [Rx Confirmed 03/25/21] aspirin [Adult Low Dose Aspirin] 81 mg PO QAM 03/25/21 [History Confirmed 03/25/21] Transfer Discharge Sum: Hosp Hospital Course Hospital course: Seth Caldwell is a 35 year old male with hx of HTN admitted to the hospital for chest pain. Please see above for further details of hospital course. Time Spent with Patient Time attestation: Total time spent providing and/or coordinating transfer services: 32 Total time spent: Greater than 30 minutes Exam Narrative: General: No acute distress, non toxic appearing Eyes: PERRL, no scleral icterus
[2021-03-31 19:42] LABS: Vitamin D 1,25 (OH)2 Total 39 pg/mL (18-72); Vitamin D2 1,25 (OH)2 <8 pg/mL; Vitamin D3 1,25 (OH)2 39 pg/mL
[2021-04-13 21:41] LABS: Parathyroid Hormone Related Pr 9 pg/mL (11-20)
== END 2021-03-29 12:20 | disposition short-term general hospital (02) | DRG 282 ==
LOC: ANHED 09:32 → ANHIMU 10:46
PROVIDERS: Emergency Medicine; Internal Medicine; Physician Assistant; Specialist; Admitting Provider Family Medicine; Emergency Provider Emergency Medicine; PCP Family Medicine; Visit Provider Physician Assistant
PROC: 4A023N7 Measurement of Cardiac Sampling and Pressure, Left Heart, Percutaneous Approach (ICD-10-PCS; CPT 93452; principal; 2021-03-27 09:00)
DX: I21.4 Non-ST elevation (NSTEMI) myocardial infarction (principal); I25.10 Atherosclerotic heart disease of native coronary artery without angina pectoris; I10 Essential (primary) hypertension; Z20.822 Contact with and (suspected) exposure to COVID-19; R77.8 Other specified abnormalities of plasma proteins; D72.829 Elevated white blood cell count, unspecified; E83.52 Hypercalcemia; N28.9 Disorder of kidney and ureter, unspecified; F17.210 Nicotine dependence, cigarettes, uncomplicated; M54.9 Dorsalgia, unspecified; Z86.16 Personal history of COVID-19; Z91.14 Patient's other noncompliance with medication regimen
CPT/HCPCS: 36415; 71046; 76775; 80048; 80053; 80061; 82310; 82330; 82570; 82652; 83519; 83690; 83735; 83970; 84100; 84443; 84484; 85025; 85027; 85610; 85652; 85730; 86140; 87426; 93005; 93458; 96365; 96366; 96375; 99291; A9270; C1887; C1894; C9803; G0378; J0583; J1644; J2250; J3010; J7030; J7040